=== PATIENT | female | born 1955 | race Caucasian/White ===

== ENCOUNTER 2017-09-24 10:30 | Emergency (ER) | payer BC, OTHER ==
[~2017-09-24] VITALS: Ht 157.5 cm; Wt 77.0 kg
[~2017-09-24 10:30] MED LIST: ACET325 PO; CIPR500T2 PO; HUMSS; HYDR-2768 PO; LIPI20TA PO; LISI2.5T55 PO; LORTA5 PO; METO50TA PO; ST JTAB PO; SUPETAB30 PO; TRAM50 PO; VITA500T49 PO
[2017-09-24] MEDS ORDERED: SODIUM CHLOR 0.9% 1000 ML INJ 1,000 ML IV ONE ×3 (10:52→12:30)
[2017-09-24] MEDS ORDERED: INSULIN HUMAN REGULAR 1,000 UNITS/10 ML VIAL IV PUSH ONE ×3 (11:00→14:00)
[2017-09-24] MEDS ORDERED: SODIUM CHLORIDE 0.9% FLUSH 10 ML FLUSH IVF PRN (11:00)
--- NOTE | 2017-09-24 11:01 | PD ---
HPI Chief Complaint: Diabetic Time Seen by Provider: 10:43 Travel History International Travel<30 days: No Contact w/Intl Traveler<30days: No Traveled to known affect area: No History of Present Illness HPI The patient was seen and examined in the presence of the nurse. This patient complains of elevated blood sugars. She is a insulin-dependent diabetic who has an insulin pump with basal rate of Humalog insulin. She adjusted based on her sugar readings. Sugar yesterday was 150. Today its critically high. She is not having fever or abdominal pain or chest pain or presyncopal symptoms. She did have some nausea. She vomited once. Symptoms severity is moderate. No alleviating factors. No exacerbating factors. Duration one day PFSH Past Medical History Heart Rhythm Problems: No Cancer: No Cardiac Catheterization: No (UNABLE TO COMPLETE) Cardiovascular Problems: Yes High Cholesterol: Yes Congestive Heart Failure: No Diabetes: Yes Patient Takes Glucophage: No (INSULIN PUMP) Diminished Hearing: No Endocrine: Yes Genitourinary: No Hypertension: Yes Immune Disorder: No Musculoskeletal: No Neurologic: No Psychiatric: No Reproductive: No Respiratory: No Tetanus Vaccination: Unknown Influenza Vaccination: Yes Menopausal: Yes : 2 Para: 2 Miscarriage: 0 : 0 Past Surgical History Appendectomy: Yes Cardiac Surgery: Yes (TRIPLE BYPASS OCT 2014) Section: Yes (X2) Coronary Artery Bypass Graft: Yes (X3 VESSELS) Eye Surgery: Yes (CATARACTS X2 REMOVED) Other Surgery: Yes (CARPAL TUNNEL, FINGER RELEASES FOR TRIGGER FINGER) Social History Alcohol Use: No Tobacco Use: No Substance Use: No Allergies-Medications (Allergen,Severity, Reaction): Coded Allergies: No Known Allergies (Unverified Adverse Reaction, Unknown, 09/24/17) Reported Meds & Prescriptions Reported Meds & Active Scripts Active Reported Humalog Inj (Insulin Human Lispro) 1,000 Unit/10 Ml Vial 5-25 Units SQ ACHS Max dose at bedtime:( )units; sugars < 70,(0)units; sugars 150-199,(5)units; sugars 200-249,(10)units; sugars 250-299,(15)units; sugars 300-349,(20)units; sugars more than 349,(25)units. Humalog Inj (Insulin Human Lispro) 1,000 Unit/10 Ml Vial 1.5 Units SQ CONTINUOUS Max dose at bedtime:( )units; sugars < 70,(0)units; sugars 150-199,(2)units; sugars 200-249,(4)units; sugars 250-299,(7)units; sugars 300-349,(10)units; sugars more than 349,(12)units. Humalog Inj (Insulin Human Lispro) 1,000 Unit/10 Ml Vial 1 Units SQ CONTINUOUS Max dose at bedtime:( )units; sugars< 70,(0)units; sugars 150-199,(1)unit; sugars 200-249,(3)units; sugars 250-299,(5)units; sugars 300-349,(7)units; sugars more than 349,(9)units. Crestor (Rosuvastatin Calcium) 40 Mg Tab 40 Mg PO DAILY Review of Systems General / Constitutional: No: Fever Eyes: No: Visual changes HENT: No: Headaches Cardiovascular: No: Chest Pain or Discomfort Respiratory: No: Shortness of Breath Gastrointestinal: No: Abdominal Pain Genitourinary: No: Dysuria Musculoskeletal: No: Pain Skin: No Rash Neurologic: No: Weakness Psychiatric: No: Depression Endocrine: No: Polydipsia Hematologic/Lymphatic: No: Easy Bruising Physical Exam Narrative GENERAL: Well-nourished, well-developed patient in no apparent distress. SKIN: Focused skin assessment reveals no rash and nodules. Skin is Warm and dry. HEAD: Atraumatic. Normocephalic. EYES: Pupils equal and round. No scleral icterus. No injection or drainage. ENT: No nasal bleeding or discharge. Mucous membranes pink and moist. NECK: Trachea midline. No JVD. CARDIOVASCULAR: Regular rate and rhythm. No murmur appreciated. RESPIRATORY: No accessory muscle use. Clear to auscultation. Breath sounds equal bilaterally. GASTROINTESTINAL: Abdomen soft, non-tender, nondistended. Hepatic and splenic margins not palpable. MUSCULOSKELETAL: No obvious deformities. No clubbing. No cyanosis. No edema. NEUROLOGICAL: Awake and alert. No obvious cranial nerve deficits. Motor grossly within normal limits. Normal speech. PSYCHIATRIC: Appropriate mood and affect; insight and judgment normal. Data Data Last Documented VS Vital Signs Date Time Temp Pulse Resp B/P (MAP) Pulse Ox O2 Delivery O2 Flow Rate FiO2 09/24/17 13:43 73 16 138/62 (87) 99 Room Air Orders Orders Electrocardiogram (09/24/17 10:52) Complete Blood Count With Diff (09/24/17 10:52) Comprehensive Metabolic Panel (09/24/17 10:52) Beta Hydroxybutyrate (Acetone) (09/24/17 10:52) Ecg Monitoring (09/24/17 10:52) Iv Access Insert/Monitor (09/24/17 10:52) Oximetry (09/24/17 10:52) Sodium Chlor 0.9% 1000 Ml Inj (Ns 1000 M (09/24/17 10:52) Sodium Chlor 0.9% 1000 Ml Inj (Ns 1000 M (09/24/17 11:22) Sodium Chloride 0.9% Flush (Ns Flush) (09/24/17 11:00) Insulin Human Regular Inj (Novolin R Inj (09/24/17 11:00) Ondansetron Inj (Zofran Inj) (09/24/17 11:15) Sodium Chlor 0.9% 1000 Ml Inj (Ns 1000 M (09/24/17 12:30) Insulin Human Regular Inj (Novolin R Inj (09/24/17 12:30) Insulin Human Regular Inj (Novolin R Inj (09/24/17 14:00) Labs Laboratory Tests Test 09/24/17 11:02 White Blood Count 10.8 TH/MM3 Red Blood Count 4.86 MIL/MM3 Hemoglobin 14.5 GM/DL Hematocrit 44.2 % Mean Corpuscular Volume 91.0 FL Mean Corpuscular Hemoglobin 29.9 PG Mean Corpuscular Hemoglobin Concent 32.8 % Red Cell Distribution Width 14.0 % Platelet Count 252 TH/MM3 Mean Platelet Volume 9.1 FL Neutrophils (%) (Auto) 92.7 % Lymphocytes (%) (Auto) 4.8 % Monocytes (%) (Auto) 2.1 % Eosinophils (%) (Auto) 0.1 % Basophils (%) (Auto) 0.3 % Neutrophils # (Auto) 10.0 TH/MM3 Lymphocytes # (Auto) 0.5 TH/MM3 Monocytes # (Auto) 0.2 TH/MM3 Eosinophils # (Auto) 0.0 TH/MM3 Basophils # (Auto) 0.0 TH/MM3 CBC Comment DIFF FINAL Differential Comment Blood Urea Nitrogen 36 MG/DL Creatinine 1.74 MG/DL Random Glucose 697 MG/DL Total Protein 7.7 GM/DL Albumin 3.9 GM/DL Calcium Level 9.8 MG/DL Alkaline Phosphatase 82 U/L Aspartate Amino Transf (AST/SGOT) 17 U/L Alanine Aminotransferase (ALT/SGPT) 24 U/L Total Bilirubin 1.2 MG/DL Sodium Level 134 MEQ/L Potassium Level 4.5 MEQ/L Chloride Level 98 MEQ/L Carbon Dioxide Level 22.4 MEQ/L Anion Gap 14 MEQ/L Estimat Glomerular Filtration Rate 30 ML/MIN B-Hydroxybutyrate 3.98 MMOL/L MDM Medical Decision Making Medical Screen Exam Complete: Yes Emergency Medical Condition: Yes Medical Record Reviewed: Yes Differential Diagnosis DKA, hyperglycemia, gastroenteritis Narrative Course I have reviewed the patient's electronic medical record. IV placed I gave her 2 L normal saline IV I gave her IV Zofran CBC is normal Metabolic profile shows hyperglycemia of approximately 700 but normal CO2, he is not acidotic and not in DKA LFTs are normal Beta hydroxybutyrate is elevated I gave her 12 units IV regular insulin Extended cardiac monitoring reveals sinus rhythm without ectopy I reviewed her EKG which shows sinus rhythm but no ST elevation I gave her second 12 units IV regular insulin. On recheck sugar is down to 360 from 700 She feels fine I gave her a third liter of saline and 8 additional units of IV regular insulin She is going to dial up her insulin pump to a higher rate and closely track her sugars Recommend follow-up with her physician tomorrow and return if worse Diagnosis Primary Impression: Hyperglycemia due to type 1 diabetes mellitus Additional Impression: Nausea & vomiting Qualified Codes: R11.2 - Nausea with vomiting, unspecified Additional Instructions: The patient was advised to follow up with their physician and return if they worsen. Med/Other Pt SpecificInfo: Other Disposition: 01 DISCHARGE HOME Condition: Stable Jerrell Ray MD Sep 24, 2017 11:01
[2017-09-24] MEDS ORDERED: ONDANSETRON HCL 4 MG/2 ML VIAL IV ONE (11:15)
[2017-09-24] MEDS ORDERED: HUMALOG SQ ×2 (11:24)
[2017-09-24] MEDS ORDERED: ROSU40 PO (11:24)
[2017-09-24 11:25] LABS: BASOPHIL % 0.3 % (0.0-2.0); EOSINOPHIL % 0.1 % (0.0-4.0); HEMATOCRIT 44.2 % (35.0-46.0); HEMO FLAGS DIFF FINAL; LYMPH % 4.8 % (9.0-44.0); LYMPHOCYTE # 0.5 TH/MM3 (1.0-4.8); MEAN CORPUSCULAR HEMOGLOBIN 29.9 PG (27.0-34.0); MEAN CORPUSCULAR HGB CONC 32.8 % (32.0-36.0); MONO % 2.1 % (0.0-8.0); NEUT % 92.7 % (16.0-70.0); PLATELET COUNT 252 TH/MM3 (150-450); RED BLOOD COUNT 4.86 MIL/MM3 (4.00-5.30); WHITE BLOOD COUNT 10.8 TH/MM3 (4.0-11.0)
[2017-09-24 11:57] LABS: ANION GAP 14 MEQ/L (5-15)
[2017-09-24 12:05] LABS: ALKALINE PHOSPHATASE 82 U/L (45-117); ALT (GPT) 24 U/L (10-53); AST (GOT) 17 U/L (15-37); BETA-HYDROXYBUTYRATE 3.98 MMOL/L (0.00-0.39); BICARBONATE 22.4 MEQ/L (21.0-32.0); BLOOD UREA NITROGEN 36 MG/DL (7-18); CHLORIDE 98 MEQ/L (98-107); GLOMERULAR FILTRATION RATE 30 ML/MIN (>89); POTASSIUM 4.5 MEQ/L (3.5-5.1); SODIUM (NA) 134 MEQ/L (136-145); TOTAL BILIRUBIN ADULT 1.2 MG/DL (0.2-1.0)
[2017-09-24 12:14] VITALS: BP 142/60; PULSE 78; RESP 20; O2SAT 99
[2017-09-24 13:43] VITALS: BP 138/62; PULSE 73; RESP 16; O2SAT 99
[2017-09-24] MEDS ORDERED: ZOFR4TAB PO (14:43)
--- NOTE | 2017-09-25 20:26 | EKG ---
Date Performed: 09/24/2017 Time Performed: 10:43:42 PTAGE: 62 years EKG: Sinus rhythm POSSIBLE LEFT ATRIAL ENLARGEMENT PROBABLE INFERIOR MYOCARDIAL INFARCTION There are subtle but diffus e ST depression that are new, consider ischemia ABNORMAL ECG PREVIOUS TRACING : 12/23/2014 16.05 DOCTOR: Jose Angel Casanova Interpretating Date/Time 09/25/2017 20:24:57
== END 2017-09-24 14:55 | disposition home or self-care (01) ==
LOC: NEPE 10:30
DX: E10.65 Type 1 diabetes mellitus with hyperglycemia (principal); R11.2 Nausea with vomiting, unspecified; R94.31 Abnormal electrocardiogram [ECG] [EKG]; I10 Essential (primary) hypertension; E78.00 Pure hypercholesterolemia, unspecified; Z79.4 Long term (current) use of insulin; Z86.79 Personal history of other diseases of the circulatory system
CPT/HCPCS: 80053; 82010; 85025; 93005; 96361; 96374; 96375; 96376; 99284; J1815; J2405; J7030

== ENCOUNTER 2017-09-24 19:21 | Inpatient (IN) | payer BC, OTHER ==
[~2017-09-24] VITALS: Ht 157.5 cm; Wt 82.3 kg
[~2017-09-24 19:21] MED LIST changes: +HUMALOG SQ; +ROSU40 PO; +ZOFR4TAB PO
[2017-09-24 19:23] VITALS: BP 146/81; PULSE 91; RESP 16; TEMP 98.7; O2SAT 99
--- NOTE | 2017-09-24 19:41 | PD ---
HPI Chief Complaint: GI Complaint Time Seen by Provider: 19:41 Travel History International Travel<30 days: No Contact w/Intl Traveler<30days: No Traveled to known affect area: No History of Present Illness HPI 62-year-old female with history of CAD, CABG 3 in 2014, diabetes, presents to emergency department for the second time today for elevated blood glucose. Patient was seen and evaluated this morning, discharged this afternoon and advised to follow-up with the primary care provider. She states that her blood glucose has again become greater than 400. She is nauseous and vomiting. She has had substernal pain and she is uncertain if this is secondary to vomiting or her heart. Patient states the last time her blood glucose was this "out-of- control" was prior to her triple bypass surgery. This caused her to be concerned so she came back to the emergency department. She denies any shortness of breath. No recent illnesses, fever, or chills. She has no other symptoms reported. PFSH Past Medical History Heart Rhythm Problems: No Cancer: No Cardiovascular Problems: Yes High Cholesterol: Yes Congestive Heart Failure: No Diabetes: Yes Patient Takes Glucophage: No Diminished Hearing: No Endocrine: Yes Genitourinary: No Hypertension: Yes Immune Disorder: No Musculoskeletal: No Neurologic: No Psychiatric: No Reproductive: No Respiratory: No ?: Not Menopausal: Yes : 2 Para: 2 Miscarriage: 0 : 0 Past Surgical History Appendectomy: Yes Cardiac Surgery: Yes (TRIPLE BYPASS OCT 2014) Section: Yes (X2) Coronary Artery Bypass Graft: Yes (X3 VESSELS) Eye Surgery: Yes (CATARACTS X2 REMOVED) Other Surgery: Yes (CARPAL TUNNEL, FINGER RELEASES FOR TRIGGER FINGER) Social History Alcohol Use: No Tobacco Use: No Substance Use: No Allergies-Medications (Allergen,Severity, Reaction): Coded Allergies: No Known Allergies (Unverified Adverse Reaction, Unknown, 09/24/17) Reported Meds & Prescriptions Reported Meds & Active Scripts Active Zofran (Ondansetron HCl) 4 Mg Tab 4 Mg PO Q6HR PRN Reported Humalog Inj (Insulin Human Lispro) 1,000 Unit/10 Ml Vial 5-25 Units SQ ACHS Max dose at bedtime:( )units; sugars < 70,(0)units; sugars 150-199,(5)units; sugars 200-249,(10)units; sugars 250-299,(15)units; sugars 300-349,(20)units; sugars more than 349,(25)units. Humalog Inj (Insulin Human Lispro) 1,000 Unit/10 Ml Vial 1.5 Units SQ CONTINUOUS Max dose at bedtime:( )units; sugars < 70,(0)units; sugars 150-199,(2)units; sugars 200-249,(4)units; sugars 250-299,(7)units; sugars 300-349,(10)units; sugars more than 349,(12)units. Humalog Inj (Insulin Human Lispro) 1,000 Unit/10 Ml Vial 1 Units SQ CONTINUOUS Max dose at bedtime:( )units; sugars< 70,(0)units; sugars 150-199,(1)unit; sugars 200-249,(3)units; sugars 250-299,(5)units; sugars 300-349,(7)units; sugars more than 349,(9)units. Crestor (Rosuvastatin Calcium) 40 Mg Tab 40 Mg PO DAILY Review of Systems Except as stated in HPI: all other systems reviewed are Neg Physical Exam Narrative GENERAL: Well-nourished female patient, lying in bed in no acute distress. SKIN: Focused skin assessment warm/dry. HEAD: Atraumatic. Normocephalic. EYES: Pupils equal and round. No scleral icterus. No injection or drainage. ENT: No nasal bleeding or discharge. Mucous membranes pink and moist. NECK: Trachea midline. No JVD. CARDIOVASCULAR: Regular rate and rhythm. No murmur appreciated. RESPIRATORY: No accessory muscle use. Clear to auscultation. Breath sounds equal bilaterally. GASTROINTESTINAL: Abdomen soft, non-tender, nondistended. Hepatic and splenic margins not palpable. MUSCULOSKELETAL: No obvious deformities. No clubbing. No cyanosis. No edema. NEUROLOGICAL: Awake and alert. No obvious cranial nerve deficits. Motor grossly within normal limits. Normal speech. PSYCHIATRIC: Appropriate mood and affect; insight and judgment normal. Data Data Last Documented VS Vital Signs Date Time Temp Pulse Resp B/P (MAP) Pulse Ox O2 Delivery O2 Flow Rate FiO2 09/24/17 20:04 99 Room Air 09/24/17 19:23 98.7 91 16 Orders Orders Basic Metabolic Panel (Bmp) (09/24/17 19:45) Complete Blood Count With Diff (09/24/17 19:45) Lipase (09/24/17 19:45) Prothrombin Time / Inr (Pt) (09/24/17 19:45) Act Partial Throm Time (Ptt) (09/24/17 19:45) Urinalysis - C+S If Indicated (09/24/17 19:45) Iv Access Insert/Monitor (09/24/17 19:45) Ecg Monitoring (09/24/17:45) Oximetry (09/24/17 19:45) Ondansetron Inj (Zofran Inj) (09/24/17 19:45) Sodium Chlor 0.9% 1000 Ml Inj (Ns 1000 M (09/24/17 19:45) Sodium Chloride 0.9% Flush (Ns Flush) (09/24/17 19:45) Electrocardiogram (09/24/17 19:45) Ckmb (Isoenzyme) Profile (09/24/17 19:45) Troponin I (09/24/17:45) Chest, Single Ap (09/24/17 19:45) Insulin Human Regular Inj (Novolin R Inj (09/24/17 20:00) Aspirin Chew (Aspirin Chew) (09/24/17 20:00) Nitroglycerin Sl (Nitrostat Sl) (09/24/17 20:00) CKMB (09/24/17 19:50) CKMB% (09/24/17 19:50) Morphine Inj (Morphine Inj) (09/24/17 20:45) Heparin Inj (Heparin Inj) (09/24/17 21:00) Heparin Inj (Heparin Inj) (09/25/17 03:00) Heparin Inj (Heparin Inj) (09/25/17 03:00) Heparin-D5w 25,000 U/250 Ml (Heparin-D5w (09/24/17 21:00) Cbc No Diff, Includes Plts (09/27/17 06:00) Act Partial Throm Time (Ptt) (09/25/17 03:46) Occult Blood (Hemoccult) Stool (09/24/17 20:46) Admit Order (Ed Use Only) (09/24/17 21:18) Labs Laboratory Tests Test 09/24/17 19:50 White Blood Count 14.0 TH/MM3 Red Blood Count 4.37 MIL/MM3 Hemoglobin 12.9 GM/DL Hematocrit 39.5 % Mean Corpuscular Volume 90.4 FL Mean Corpuscular Hemoglobin 29.4 PG Mean Corpuscular Hemoglobin Concent 32.5 % Red Cell Distribution Width 14.1 % Platelet Count 258 TH/MM3 Mean Platelet Volume 8.9 FL Neutrophils (%) (Auto) 92.8 % Lymphocytes (%) (Auto) 2.3 % Monocytes (%) (Auto) 4.7 % Eosinophils (%) (Auto) 0.0 % Basophils (%) (Auto) 0.2 % Neutrophils # (Auto) 13.0 TH/MM3 Lymphocytes # (Auto) 0.3 TH/MM3 Monocytes # (Auto) 0.7 TH/MM3 Eosinophils # (Auto) 0.0 TH/MM3 Basophils # (Auto) 0.0 TH/MM3 CBC Comment DIFF FINAL Differential Comment Prothrombin Time 10.7 SEC Prothromb Time International Ratio 1.1 RATIO Activated Partial Thromboplast Time 21.2 SEC Blood Urea Nitrogen 31 MG/DL Creatinine 1.74 MG/DL Random Glucose 446 MG/DL Calcium Level 8.8 MG/DL Sodium Level 140 MEQ/L Potassium Level 5.2 MEQ/L Chloride Level 107 MEQ/L Carbon Dioxide Level 19.7 MEQ/L Anion Gap 13 MEQ/L Estimat Glomerular Filtration Rate 30 ML/MIN Total Creatine Kinase 204 U/L Creatine Kinase MB 7.1 NG/ML Creatine Kinase MB % 3.5 % Troponin I 0.75 NG/ML Lipase 117 U/L MDM Medical Decision Making Medical Screen Exam Complete: Yes Emergency Medical Condition: Yes Medical Record Reviewed: Yes Differential Diagnosis Hyperglycemia versus DKA versus gastritis versus ACS Narrative Course 62-year-old female presents to emergency department for evaluation of elevated blood glucose. Patient's noted to be hyperglycemic here. She is also nauseous and vomiting with a chest pain. EKG shows lateral wall ST depression, this is new from previous EKG. She is given aspirin and lingual nitroglycerin. Upon reassessment she states it mildly helps her pain however pain still persists. She is given morphine. Laboratory Tests Test 09/24/17 19:50 White Blood Count 14.0 TH/MM3 Red Blood Count 4.37 MIL/MM3 Hemoglobin 12.9 GM/DL Hematocrit 39.5 % Mean Corpuscular Volume 90.4 FL Mean Corpuscular Hemoglobin 29.4 PG Mean Corpuscular Hemoglobin Concent 32.5 % Red Cell Distribution Width 14.1 % Platelet Count 258 TH/MM3 Mean Platelet Volume 8.9 FL Neutrophils (%) (Auto) 92.8 % Lymphocytes (%) (Auto) 2.3 % Monocytes (%) (Auto) 4.7 % Eosinophils (%) (Auto) 0.0 % Basophils (%) (Auto) 0.2 % Neutrophils # (Auto) 13.0 TH/MM3 Lymphocytes # (Auto) 0.3 TH/MM3 Monocytes # (Auto) 0.7 TH/MM3 Eosinophils # (Auto) 0.0 TH/MM3 Basophils # (Auto) 0.0 TH/MM3 CBC Comment DIFF FINAL Differential Comment Prothrombin Time 10.7 SEC Prothromb Time International Ratio 1.1 RATIO Activated Partial Thromboplast Time 21.2 SEC Blood Urea Nitrogen 31 MG/DL Creatinine 1.74 MG/DL Random Glucose 446 MG/DL Calcium Level 8.8 MG/DL Sodium Level 140 MEQ/L Potassium Level 5.2 MEQ/L Chloride Level 107 MEQ/L Carbon Dioxide Level 19.7 MEQ/L Anion Gap 13 MEQ/L Estimat Glomerular Filtration Rate 30 ML/MIN Total Creatine Kinase 204 U/L Creatine Kinase MB 7.1 NG/ML Creatine Kinase MB % 3.5 % Troponin I 0.75 NG/ML Lipase 117 U/L Patient has leukocytosis of 14. Hyperkalemia 5.2. Blood glucose is 446. Patient was given IV normal saline fluid and 12 units regular insulin subcutaneously. Troponin is elevated at 0.75. I have discussed the patient my attending. Patient will be started on a heparin drip. I have discussed the patient was Dr. [place], hospitalist [facility]. Patient will be admitted to the CICU. Mera discussed with the patient and her who is at bedside. They are in agreement with the splenic care. Dr. Lovett is the patient's insurance follow up rep. Diagnosis Primary Impression: NSTEMI (non-ST elevated myocardial infarction) Additional Impression: Hyperglycemia Admitting Information Admitting Physician Requests: Admit Condition: Stable Lynda Baez Sep 24, 2017 19:41
[2017-09-24] MEDS ORDERED: ONDANSETRON HCL 4 MG/2 ML VIAL IVP ONE (19:45)
[2017-09-24] MEDS ORDERED: SODIUM CHLOR 0.9% 1000 ML INJ 1,000 ML IV SCH (19:45)
[2017-09-24] MEDS ORDERED: SODIUM CHLORIDE 0.9% FLUSH 10 ML FLUSH IV FLUSH PRN ×2 (19:45→21:30)
--- NOTE | 2017-09-24 19:59 | PD ---
Physical Exam Date Seen by Provider: Sep 24, 2017 Time Seen by Provider: 19:50 Narrative Patient presents with hyperglycemia, nausea and vomiting and just feeling poorly. She was just discharged from the emergency department a few hours ago for similar symptoms. Data Data Last Documented VS Vital Signs Date Time Temp Pulse Resp B/P (MAP) Pulse Ox O2 Delivery O2 Flow Rate FiO2 09/24/17 20:04 99 Room Air 09/24/17 19:23 98.7 91 16 Orders Orders Basic Metabolic Panel (Bmp) (09/24/17 19:45) Complete Blood Count With Diff (09/24/17:45) Lipase (09/24/17:45) Prothrombin Time / Inr (Pt) (09/24/17:45) Act Partial Throm Time (Ptt) (09/24/17:45) Urinalysis - C+S If Indicated (09/24/17 19:45) Iv Access Insert/Monitor (09/24/17 19:45) Ecg Monitoring (09/24/17:45) Oximetry (09/24/17:45) Ondansetron Inj (Zofran Inj) (09/24/17 19:45) Sodium Chlor 0.9% 1000 Ml Inj (Ns 1000 M (09/24/17 19:45) Sodium Chloride 0.9% Flush (Ns Flush) (09/24/17 19:45) Electrocardiogram (09/24/17 19:45) Ckmb (Isoenzyme) Profile (09/24/17 19:45) Troponin I (09/24/17 19:45) Chest, Single Ap (09/24/17 19:45) Insulin Human Regular Inj (Novolin R Inj (09/24/17 20:00) Aspirin Chew (Aspirin Chew) (09/24/17 20:00) Nitroglycerin Sl (Nitrostat Sl) (09/24/17 20:00) CKMB (09/24/17 19:50) CKMB% (09/24/17 19:50) Morphine Inj (Morphine Inj) (09/24/17 20:45) Heparin Inj (Heparin Inj) (09/24/17 21:00) Heparin Inj (Heparin Inj) (09/25/17 03:00) Heparin Inj (Heparin Inj) (09/25/17 03:00) Heparin-D5w 25,000 U/250 Ml (Heparin-D5w (09/24/17 21:00) Cbc No Diff, Includes Plts (09/27/17 06:00) Act Partial Throm Time (Ptt) (09/25/17 03:46) Occult Blood (Hemoccult) Stool (09/24/17 20:46) Admit Order (Ed Use Only) (09/24/17 21:18) Admit To Inpatient (09/24/17 ) Vital Signs (Adult) Q4H (09/24/17 21:18) Activity Bed Rest With Brp (09/24/17 ) Statistical Methods Teacher / Telemetry [id number].[id number] (09/24/17 21:18) Diet Npo (09/25/17 Breakfast) Sodium Chlor 0.9% 1000 Ml Inj (Ns 1000 M (09/24/17 21:18) Sodium Chloride 0.9% Flush (Ns Flush) (09/25/17 09:00) Sodium Chloride 0.9% Flush (Ns Flush) (09/24/17 21:30) Acetaminophen (Tylenol) (09/24/17 21:30) Creatine Kinase (Cpk) (09/24/17 23:59) Creatine Kinase (Cpk) (09/25/17 05:59) Troponin I (09/24/17 23:59) Troponin I (09/25/17 05:59) Basic Metabolic Panel (Bmp) (09/25/17 06:00) Complete Blood Count With Diff (09/25/17 06:00) Electrocardiogram (09/24/17 23:59) Electrocardiogram (09/25/17 05:59) Resp Oxygen Gabriele C Titrat 1-4 L (09/24/17 ) Inpatient Certification (09/24/17 ) Consult Cardiology (09/24/17 ) Bedside Glucose [id number] (09/24/17 21:18) Blood Glucose Goal (Criteria) (09/24/17 21:18) Hypoglycemia 70 Mg/Dl Or < (09/24/17 21:18) Notify Dr: Other (09/24/17 21:18) Dextrose 50% In Tiara (Vial) Inj (D50w (Vi (09/24/17 21:30) Glucagon Inj (Glucagon Inj) (09/24/17 21:30) Insulin Aspart Supplemtl Scale (Novolog (09/25/17 08:00) (Nf) Rosuvastatin (Crestor) (09/25/17 09:00) Labs Laboratory Tests Test 09/24/17 19:50 White Blood Count 14.0 TH/MM3 Red Blood Count 4.37 MIL/MM3 Hemoglobin 12.9 GM/DL Hematocrit 39.5 % Mean Corpuscular Volume 90.4 FL Mean Corpuscular Hemoglobin 29.4 PG Mean Corpuscular Hemoglobin Concent 32.5 % Red Cell Distribution Width 14.1 % Platelet Count 258 TH/MM3 Mean Platelet Volume 8.9 FL Neutrophils (%) (Auto) 92.8 % Lymphocytes (%) (Auto) 2.3 % Monocytes (%) (Auto) 4.7 % Eosinophils (%) (Auto) 0.0 % Basophils (%) (Auto) 0.2 % Neutrophils # (Auto) 13.0 TH/MM3 Lymphocytes # (Auto) 0.3 TH/MM3 Monocytes # (Auto) 0.7 TH/MM3 Eosinophils # (Auto) 0.0 TH/MM3 Basophils # (Auto) 0.0 TH/MM3 CBC Comment DIFF FINAL Differential Comment Prothrombin Time 10.7 SEC Prothromb Time International Ratio 1.1 RATIO Activated Partial Thromboplast Time 21.2 SEC Blood Urea Nitrogen 31 MG/DL Creatinine 1.74 MG/DL Random Glucose 446 MG/DL Calcium Level 8.8 MG/DL Sodium Level 140 MEQ/L Potassium Level 5.2 MEQ/L Chloride Level 107 MEQ/L Carbon Dioxide Level 19.7 MEQ/L Anion Gap 13 MEQ/L Estimat Glomerular Filtration Rate 30 ML/MIN Total Creatine Kinase 204 U/L Creatine Kinase MB 7.1 NG/ML Creatine Kinase MB % 3.5 % Troponin I 0.75 NG/ML Lipase 117 U/L [facility] Supervised Visit with LUKE: Yes Interpretation(s) EKG shows a normal sinus rhythm. She has some subtle STT wave changes in V3 and V4 which are changed from previous. Differential Diagnosis Differential diagnosis of hyperglycemia includes but is not limited to dietary indiscretion, medication noncompliance, infection, [place] Narrative Course I, Dr. Pagan, have reviewed the advance practice practitioner's documentation and am in agreement, met with the patient face to face, made the diagnosis, and the medical decision making was done by me. *My assessment and Findings: This is a diabetic who presents with nausea, vomiting and hyperglycemia. She is also having some chest discomfort. She is being evaluated for ACS. If she has not already had an aspirin today, we will give her one. She will be treated with nitroglycerin. Ultimate plan will be to admit her. CBC & BMP Diagram 09/24/17 19:50 Calcium Level 8.8 # trop 0.75. This patient does have renal insufficiency. The renal insufficiency could explain the elevated troponin. Nonetheless, the patient has been heparinized. She has been given nitroglycerin. Please see Lynda Baez NP's note for results of laboratory and radiographic evaluation, ED course, final diagnosis and disposition Critical Care Narrative Aggregate critical care time was 30 minutes. Time to perform other separately billable procedures was not included in the critical care time. My time did not include minutes spent treating any other patients simultaneously or on activities that did not directly contribute to the patient's treatment. The services I provided to this patient were to treat and/or prevent clinically significant deterioration due to ACS, NSTEMI I provided critical care services requiring my management, as noted below: Chart data review, documentation time, medication orders and management, vital sign assessments/reviewing monitor data, ordering and reviewing lab tests, ordering and interpreting/reviewing x-rays and diagnostic studies, care of the patient and discussion of the patient with the admitting physicians Isadora Pagan MD Sep 24, 2017 19:59
[2017-09-24] MEDS ORDERED: INSULIN HUMAN REGULAR 1,000 UNITS/10 ML VIAL SQ ONE (20:00)
[2017-09-24] MEDS ORDERED: ASPIRIN 81 MG CHEW TAB PO ONE (20:00)
[2017-09-24 20:02] LABS: BASOPHIL % 0.2 % (0.0-2.0); HEMATOCRIT 39.5 % (35.0-46.0); HEMO FLAGS DIFF FINAL; LYMPH % 2.3 % (9.0-44.0); LYMPHOCYTE # 0.3 TH/MM3 (1.0-4.8); MEAN CELL VOLUME 90.4 FL (80.0-100.0); MEAN CORPUSCULAR HEMOGLOBIN 29.4 PG (27.0-34.0); MEAN CORPUSCULAR HGB CONC 32.5 % (32.0-36.0); MONO % 4.7 % (0.0-8.0); NEUT % 92.8 % (16.0-70.0); PLATELET COUNT 258 TH/MM3 (150-450); RED BLOOD COUNT 4.37 MIL/MM3 (4.00-5.30); RED CELL DISTRIBUTION WIDTH 14.1 % (11.6-17.2)
[2017-09-24 20:04] VITALS: O2SAT 99
[2017-09-24] MEDS: NITROGLYCERIN 0.4 MG SL 25 TABS/BTL SL SCH ×3 (20:05→20:36)
[2017-09-24 20:21] LABS: BICARBONATE 19.7 MEQ/L (21.0-32.0)
[2017-09-24 20:25] LABS: POTASSIUM 5.2 MEQ/L (3.5-5.1)
[2017-09-24 20:26] LABS: APTT (PATIENT) 21.2 SEC (24.3-30.1); INTERNATIONAL NORMALIZED RATIO 1.1 RATIO; PROTHROMBIN TIME - PATIENT 10.7 SEC (9.8-11.6)
--- NOTE | 2017-09-24 20:31 | RADRPT ---
EXAM DATE/TIME: 09/24/2017 20:19 [place] COMPARISON: CHEST SINGLE AP, December 23, 2014, 9:58. INDICATIONS : Chest pain. MEDICAL HISTORY : Cardiovascular disease. SURGICAL HISTORY : CABG. ENCOUNTER: Initial ACUITY: 1 day PAIN SCORE: 7/10 LOCATION: Bilateral chest FINDINGS: The patient is status post sternotomy. The heart size is normal. There is mild increased density at t he left lateral base. The right lung is clear. CONCLUSION: Mild atelectasis or consolidation at the left lateral base. Beto Chase MD on September 24, 2017 at 20:28 Board Certified Radiologist. This report was verified electronically.
[2017-09-24] MEDS ORDERED: MORPHINE SULFATE 2 MG/ML INJ IV PUSH ONE (20:45)
[2017-09-24 20:56] LABS: CKMB 7.1 NG/ML (0.5-3.6)
[2017-09-24] MEDS ORDERED: HEPARIN-D5W 25,000 U/250 ML 250 ML IV PRN (21:00)
[2017-09-24] MEDS ORDERED: HEPARIN SODIUM - IV 10,000 UNITS/10 ML VIAL IV ONE (21:00)
[2017-09-24] MEDS ORDERED: ACETAMINOPHEN 500 MG CPLT PO PRN (21:30)
[2017-09-24] MEDS ORDERED: GLUCAGON 1 MG/ML VIAL OTHER PRN (21:30)
[2017-09-24] MEDS ORDERED: DEXTROSE 50% IN WATER 50 ML VIAL(D50) IV PUSH PRN (21:30)
[2017-09-24 22:00] VITALS: O2SAT 95
[2017-09-24 23:09] LABS: BACTERIA, URINE RARE /hpf; BLOOD, URINE NEG (NEG); COMMENT (UR) CULT NOT INDICATED; CULTURE IF INDICATED CULT NOT INDICATED; GLUCOSE,URINE 1000 mg/dL (NEG); KETONE, URINE 40 mg/dL (NEG); MUCUS URINE FEW /lpf (OCC); NITRITE,URINE NEG (NEG); SQUAMOUS EPITHELIAL CELL URINE <1 /hpf (0-5); URINE COLOR LIGHT-YELLOW (YELLW/STRAW)
[2017-09-24] MEDS: SODIUM CHLOR 0.9% 1000 ML INJ 1,000 ML IV SCH (23:16)
--- NOTE | 2017-09-24 23:28 | HHI.HP ---
[facility] Service [facility] Primary Care Physician Madhuri Hannon MD Admission Diagnosis HYPERGLYCEMIA; NSTEMI Diagnoses: Travel History International Travel<30 Days: No Contact w/Intl Traveler <30 Da: No Traveled to Known Affected Are: No History of Present Illness 62-year-old female with a past medical history significant for CAD status post CABG, hyperlipidemia and insulin-dependent diabetes mellitus presents to the emergency department for uncontrolled hyperglycemia, nausea/vomiting and chest pain. The patient was seen in the ED earlier today where she was treated for hyperglycemia and discharged home. She continued to have high blood sugars, nausea with emesis and developed left sided chest pain/pressure and returned for further evaluation. She states the symptoms are identical to when she had her previous LA 2 years ago. Troponin found to be 0.75. EKG significant for new ST depressions in the lateral leads. Review of Systems Denies fever or chills Denies blurry vision, otorrhea, rhinorrhea Denies sore throat and cough Positive chest pain, No palpitations, shortness of breath No abdominal pain Denies constipation/diarrhea. Positive nausea/vomiting Denies muscle pain/weakness No rashes Past Family Social History Past Medical History Hypertension Hyperlipidemia CAD Diabetes mellitus with insulin pump in place Diabetic retinopathy Past Surgical History CABG 3 in October 2014 2 Appendectomy Bilateral carpal tunnel release Multiple trigger finger release surgeries Reported Medications Reported Meds & Active Scripts Active Zofran (Ondansetron HCl) 4 Mg Tab 4 Mg PO Q6HR PRN Reported Humalog Inj (Insulin Human Lispro) 1,000 Unit/10 Ml Vial 5-25 Units SQ ACHS Max dose at bedtime:( )units; sugars < 70,(0)units; sugars 150-199,(5)units; sugars 200-249,(10)units; sugars 250-299,(15)units; sugars 300-349,(20)units; sugars more than 349,(25)units. Humalog Inj (Insulin Human Lispro) 1,000 Unit/10 Ml Vial 1.5 Units SQ CONTINUOUS Max dose at bedtime:( )units; sugars < 70,(0)units; sugars 150-199,(2)units; sugars 200-249,(4)units; sugars 250-299,(7)units; sugars 300-349,(10)units; sugars more than 349,(12)units. Humalog Inj (Insulin Human Lispro) 1,000 Unit/10 Ml Vial 1 Units SQ CONTINUOUS Max dose at bedtime:( )units; sugars< 70,(0)units; sugars 150-199,(1)unit; sugars 200-249,(3)units; sugars 250-299,(5)units; sugars 300-349,(7)units; sugars more than 349,(9)units. Crestor (Rosuvastatin Calcium) 40 Mg Tab 40 Mg PO DAILY Allergies: Coded Allergies: No Known Allergies (Unverified Adverse Reaction, Unknown, 09/24/17) Family History Both parents with type 2 diabetes mellitus. Social History Denies tobacco. Occasional alcohol. Denies illicit drugs. Physical Exam Vital Signs Vital Signs Date Time Temp Pulse Resp B/P (MAP) Pulse Ox O2 Delivery O2 Flow Rate FiO2 09/24/17 20:04 99 Room Air 09/24/17 19:23 98.7 91 16 146/81 (102) 99 Room Air Physical Exam GENERAL: female lying in bed SKIN: No rashes, ecchymoses or lesions. Cool and dry. HEAD: Atraumatic. Normocephalic. No temporal or scalp tenderness. EYES: Pupils equal round and reactive. Extraocular motions intact. No scleral icterus. No injection or drainage. ENT: Nose without bleeding, purulent drainage or septal hematoma. Throat without erythema, tonsillar hypertrophy or exudate. Uvula midline. Airway patent. NECK: Trachea midline. No JVD or lymphadenopathy. Supple, nontender, no meningeal signs. CARDIOVASCULAR: Regular rate and rhythm without murmurs, gallops, or rubs. RESPIRATORY: Clear to auscultation. Breath sounds equal bilaterally. No wheezes , rales, or rhonchi. GASTROINTESTINAL: Abdomen soft, non-tender, nondistended. No hepato-splenomegaly , or palpable masses. No guarding. MUSCULOSKELETAL: Extremities without clubbing, cyanosis, or edema. No joint tenderness, effusion, or edema noted. No calf tenderness. NEUROLOGICAL: Awake and alert. Cranial nerves II through XII intact. Motor and sensory grossly within normal limits. Normal speech. Laboratory Laboratory Tests Test 09/24/17 19:50 09/24/17 22:15 09/24/17 22:30 White Blood Count 14.0 Red Blood Count 4.37 Hemoglobin 12.9 Hematocrit 39.5 Mean Corpuscular Volume 90.4 Mean Corpuscular Hemoglobin 29.4 Mean Corpuscular Hemoglobin Concent 32.5 Red Cell Distribution Width 14.1 Platelet Count 258 Mean Platelet Volume 8.9 Neutrophils (%) (Auto) 92.8 Lymphocytes (%) (Auto) 2.3 Monocytes (%) (Auto) 4.7 Eosinophils (%) (Auto) 0.0 Basophils (%) (Auto) 0.2 Neutrophils # (Auto) 13.0 Lymphocytes # (Auto) 0.3 Monocytes # (Auto) 0.7 Eosinophils # (Auto) 0.0 Basophils # (Auto) 0.0 CBC Comment DIFF FINAL Differential Comment Prothrombin Time 10.7 Prothromb Time International Ratio 1.1 Activated Partial Thromboplast Time 21.2 Blood Urea Nitrogen 31 Creatinine 1.74 Random Glucose 446 Calcium Level 8.8 Sodium Level 140 Potassium Level 5.2 Chloride Level 107 Carbon Dioxide Level 19.7 Anion Gap 13 Estimat Glomerular Filtration Rate 30 Total Creatine Kinase 204 Creatine Kinase MB 7.1 Creatine Kinase MB % 3.5 Troponin I 0.75 Lipase 117 Urine Color LIGHT-YELLOW Urine Turbidity CLEAR Urine pH 5.0 Urine Specific [place] 1.016 Urine Protein NEG Urine Glucose (UA) 1000 Urine Ketones 40 Urine Occult Blood NEG Urine Nitrite NEG Urine Bilirubin NEG Urine Urobilinogen LESS THAN 2.0 Urine Leukocyte Esterase NEG Urine RBC LESS THAN 1 Urine WBC 2 Urine Squamous Epithelial Cells <1 Urine Bacteria RARE Urine Mucus FEW Microscopic Urinalysis Comment CULT NOT INDICATED Result Diagram: 09/24/17194909/24/171949 Caprini VTE Risk Assessment Caprini VTE Risk Assessment: Mod/High Risk (score >= 2) Caprini Risk Assessment Model Point Value = 1 Point Value = 2 Point Value = 3 Point Value = 5 Age 41-60 Minor surgery BMI > 25 kg/m2 Swollen legs Varicose veins or History of unexplained or recurrent spontaneous Oral contraceptives or hormone replacement Sepsis (< 1 month) Serious lung disease, including pneumonia (< 1 month) Abnormal pulmonary function Acute myocardial infarction Congestive heart failure (< 1 month) History of inflammatory bowel disease Medical patient at bed rest Age 61-74 Arthroscopic surgery Major open surgery (> 45 min) Laparoscopic surgery (> 45 min) Malignancy Confined to bed (> 72 hours) Immobilizing plaster cast Central venous access Age >= 75 History of VTE Family history of VTE Factor V Leiden Prothrombin [id number] Lupus anticoagulant Anticardiolipin antibodies Elevated serum homocysteine Heparin-induced thrombocytopenia Other congenital or acquired thrombophilia Stroke (< 1 month) Elective arthroplasty Hip, pelvis, or leg fracture Acute spinal cord injury (< 1 month) Prophylaxis Regimen Total Risk Factor Score Risk Level Prophylaxis Regimen 0-1 Low Early ambulation 2 Moderate Order ONE of the following: *Sequential Compression Device (SCD) *Heparin 5000 units SQ BID 3-4 Higher Order ONE of the following medications: *Heparin 5000 units SQ TID *Enoxaparin/Lovenox 40 mg SQ daily (WT < 150 kg, CrCl > 30 mL/min) *Enoxaparin/Lovenox 30 mg SQ daily (WT < 150 kg, CrCl > 10-29 mL/min) *Enoxaparin/Lovenox 30 mg SQ BID (WT < 150 kg, CrCl > 30 mL/min) AND/OR *Sequential Compression Device (SCD) 5 or more Highest Order ONE of the following medications: *Heparin 5000 units SQ TID (Preferred with Epidurals) *Enoxaparin/Lovenox 40 mg SQ daily (WT < 150 kg, CrCl > 30 mL/min) *Enoxaparin/Lovenox 30 mg SQ daily (WT < 150 kg, CrCl > 10-29 mL/min) *Enoxaparin/Lovenox 30 mg SQ BID (WT < 150 kg, CrCl > 30 mL/min) AND *Sequential Compression Device (SCD) Assessment and Plan Assessment and Plan Assessment/plan: 1. NSTEMI Troponin 0.75 EKG significant for new ST depressions in the lateral leads, reviewed by me Patient's government affairs manager, Dr. Loevtt consulted, appreciate recommendations Heparin drip Morphine for pain Serial troponins/EKGs 2. Type 2 diabetes mellitus with uncontrolled hyperglycemia Patient currently has an insulin pump Given IV insulin SSI Monitor blood glucose 3. Hyperlipidemia Continue home crestor FEN NPO NS at 100 cc/hr Electrolytes: monitor and replete prn Heparin ggt Case discussed with ER physician at length Physician Certification 2 Midnight Certification Type: Admission for Inpatient Services Order for Inpatient Services The services are ordered in accordance with Medicare regulations or non- Medicare payer requirements, as applicable. In the case of services not specified as inpatient-only, they are appropriately provided as inpatient services in accordance with the 2-midnight benchmark. Estimated LOS (days): 2 2 days is the estimated time the patient will need to remain in the hospital, assuming treatment plan goals are met and no additional complications. Post-Hospital Plan: Not yet determined Kaur Montana MD Sep 24, 2017 23:28
[2017-09-24 23:30] VITALS: BP 107/56; PULSE 82; RESP 16; O2SAT 99
[2017-09-24] MEDS ORDERED: MORPHINE SULFATE 4 MG/ML INJ IV PUSH PRN (23:30)
[2017-09-24 23:42] LABS: CKMB 11.5 NG/ML (0.5-3.6)
[2017-09-25] VITALS (25 sets, daily range): BP systolic 104–138; BP diastolic 53–63; PULSE 62–84; RESP 16–20; TEMP 98.5–98.9; O2SAT 95–99
[2017-09-25] MEDS ORDERED: HEPARIN SODIUM - IV 10,000 UNITS/10 ML VIAL IV PRN ×4 (03:00→19:45)
[2017-09-25 07:36] LABS: AUTOMATED NEUTROPHIL # 11.6 TH/MM3 (1.8-7.7); BASOPHIL % 0.3 % (0.0-2.0); HEMATOCRIT 34.8 % (35.0-46.0); HEMO FLAGS DIFF FINAL; LYMPH % 6.2 % (9.0-44.0); LYMPHOCYTE # 0.8 TH/MM3 (1.0-4.8); MEAN CELL VOLUME 88.8 FL (80.0-100.0); MEAN CORPUSCULAR HEMOGLOBIN 29.1 PG (27.0-34.0); MEAN CORPUSCULAR HGB CONC 32.8 % (32.0-36.0); MONO % 7.1 % (0.0-8.0); NEUT % 86.4 % (16.0-70.0); PLATELET COUNT 254 TH/MM3 (150-450); RED BLOOD COUNT 3.92 MIL/MM3 (4.00-5.30); RED CELL DISTRIBUTION WIDTH 13.8 % (11.6-17.2); WHITE BLOOD COUNT 13.5 TH/MM3 (4.0-11.0)
[2017-09-25 07:44] LABS: APTT (PATIENT) 66.4 SEC (24.3-30.1)
[2017-09-25] MEDS: INSULIN ASPART SUPPLEMENTAL SCALE SQ SCH ×4 (08:00→20:56)
[2017-09-25 08:09] LABS: BICARBONATE 23.5 MEQ/L (21.0-32.0); POTASSIUM 4.2 MEQ/L (3.5-5.1)
[2017-09-25 08:39] LABS: CKMB 33.2 NG/ML (0.5-3.6)
[2017-09-25] MEDS: SODIUM CHLORIDE 0.9% FLUSH 10 ML FLUSH IV FLUSH SCH ×2 (09:00→20:51)
[2017-09-25] MEDS: ATORVASTATIN 80 MG TAB PO SCH (10:43)
[2017-09-25] MEDS: SODIUM CHLOR 0.9% 1000 ML INJ 1,000 ML IV SCH ×2 (10:44→20:52)
--- NOTE | 2017-09-25 11:56 | HHI.PR ---
Subjective Remarks No chest pain or nausea today. Blood sugars are under better control. Troponins have trended upwards and latest troponin is 15.40 (this is her third troponin) Objective Vital Signs Date Time Temp Pulse Resp B/P (MAP) Pulse Ox O2 Delivery O2 Flow Rate FiO2 09/25/17 06:00 78 09/25/17 05:00 74 09/25/17 04:00 76 09/25/17 03:20 84 18 107/57 (74) 95 09/25/17 03:00 78 09/25/17 02:00 76 09/25/17 01:00 78 09/25/17 00:15 98.9 77 16 105/58 (74) 99 09/25/17 00:00 81 09/24/17 23:56 09/24/17 23:30 82 16 107/56 (73) 99 Room Air 09/24/17 22:00 95 09/24/17 20:04 99 Room Air 09/24/17 19:23 98.7 91 16 146/81 (102) 99 Room Air I/O 09/24/17 09/24/17 09/24/17 09/25/17 09/25/17 09/25/17 06:59 14:59 22:59 06:59 14:59 22:59 Intake Total 1050 ml Balance 1050 ml Intake Oral 50 ml IV Total 1000 ml # Voids 1 # Bowel Movements 0 Result Diagram: 09/25/1761609/25/17616 Objective Remarks GENERAL: NAD, A&Ox3 HEAD: Normocephalic. NECK: Supple, trachea midline. No lymphadenopathy. EYES: No scleral icterus. No injection or drainage. CARDIOVASCULAR: Regular rate and rhythm without murmurs, gallops, or rubs. RESPIRATORY: Breath sounds equal bilaterally. No accessory muscle use. GASTROINTESTINAL: Abdomen soft, non-tender, nondistended. MUSCULOSKELETAL: No cyanosis, or edema. Scar over sternum SKIN: Warm and dry. NEURO: No focal neurological deficitis. A/P Problem List: (1) NSTEMI (non-ST elevated myocardial infarction) ICD Code: I21.4 - NSTEMI (non-ST elevated myocardial infarction) Status: Acute (2) Hyperglycemia ICD Code: R73.9 - Hyperglycemia, unspecified Status: Acute Assessment and Plan Assessment and plan 62-year-old female admitted with NSTEMI and hyperglycemia NSTEMI Asymptomatic this morning, when seen First Troponin was 0.75 and has trended upwards to 15.404 third troponin. Continue to monitor troponins every morning until trend downward it is recognized Cardiology following Patient is on a Heparin drip Morphine for pain Diabetes mellitus type 1 Follow blood sugars Insulin sliding scale Diabetic diet Hyperlipidemia Continue home crestor Fasting lipid profile in a.m. DVT prophylaxis Heparin drip Shaw Dawkins MD Sep 25, 2017 11:56
[2017-09-25] MEDS ORDERED: PILL SPLITTER OTHER PRN (12:15)
[2017-09-25] MEDS ORDERED: HEPARIN-NS/PF INJ 1,000 ML ONE (12:26)
[2017-09-25] MEDS ORDERED: MIDAZOLAM HCL 2 MG/2 ML VIAL ONE (12:26)
--- NOTE | 2017-09-25 12:39 | MB ---
cc: BOSSMNA FLOREZ DATE OF 1955 DATE OF CONSULTATION September 25, 2017 REASON FOR CONSULTATION Chest pain. Elevated troponins. HISTORY OF PRESENT ILLNESS 62-year-old female with past medical history significant for diabetes mellitus, CAD status post CABG x3 in 2014, hyperlipidemia, hypertension, who presented to the hospital with uncontrolled blood sugars, nausea, vomiting and chest pain. EKG showed sinus rhythm with inferior Q-waves, incomplete right bundle branch block and nonspecific ST changes. Troponin was markedly elevated. Thus cardiology has been consulted for a [id number] AK. The patient has been started on a heparin drip and has been admitted to telemetry for further management and evaluation. Currently she denies chest pain, shortness of breath , palpitations, syncope, dizziness, leg edema, PND, nausea, vomiting, diarrhea, fevers or chills. PAST MEDICAL HISTORY 1. Hypertension. 2. Hyperlipidemia. 3. CAD status post CABG. 4. Diabetes mellitus with insulin pump in place. 5. Diabetic retinopathy. PAST SURGICAL HISTORY 1. CABG x3 in October of 2015. 2. x2. 3. Appendectomy. 4. Bilateral carpal tunnel release. 5. Multiple trigger finger release surgeries. HOME MEDICATIONS 1. Zofran. 2. Crestor. ALLERGIES No known drug allergies. FAMILY HISTORY Both parents with type 2 diabetes mellitus. SOCIAL HISTORY Denies tobacco, alcohol or illicit drug use. PHYSICAL EXAMINATION VITAL SIGNS: Temperature 98.9, respiratory rate 18, heart rate 78, blood pressure 107/57, O2 sat 95% on 2 liters nasal cannula. GENERAL: She is awake, alert, oriented x3, in no acute distress. NECK: No JVD, no carotid bruits. HEART: Regular rate and rhythm. No murmurs, rubs or gallops. LUNGS: Clear to auscultation bilaterally. ABDOMEN: Benign. Obese. Positive bowel sounds. Soft, nontender, nondistended. EXTREMITIES: No cyanosis or edema. LABORATORY DATA Hemoglobin 11, hematocrit 34, platelet count 254. INR 1.1. Chemistries: Sodium 145, potassium 4.2, BUN 24, creatinine 1.5, glucose 149. Troponin 15.4. Lipase 117. Urinalysis - There is a significant amount of glucose, ketones. EKG: Sinus rhythm with an incomplete right bundle-branch block and inferior Q- waves. ECHOCARDIOGRAM: Done in 2014, shows a preserved LV systolic function. LEFT HEART CATHETERIZATION Done [place] [address] Lovett shows small citizen [place] coronary arteries with preserved LV systolic function. ASSESSMENT AND PLAN 62-year-old female with known coronary artery disease who presented with a non- ST-elevation AK. She remains afebrile, hemodynamically stable and chest pain- free. She has been started on heparin drip. Troponin is significantly increased. Glucose better controlled and the kidney function trending back to baseline. Her SUKHWINDER risk score is 3, [place] Class I with no clinical signs of heart failure. Given the patient's presentation with Non-STEMI, recommendation will be to take her to the Cardiac Catheterization Laboratory to further assess coronary artery anatomy as well as graft anatomy. The risks and benefits of left heart cath/PCI including but not limited to neurovascular trauma, infection , bleeding acute kidney injury, stroke, emergent bypass surgery and have been explained to the patient. The patient understands the risks and she is willing to proceed. RECOMMENDATIONS 1. Keep n.p.o. for left heart cath today. 2. Continue heparin drip. 3. Start beta-blockers. 4. KAREN inhibitors as tolerated by heart rate and blood pressure. 5. Start aspirin. Thank you for the opportunity to take part in the care of this patient. Further therapy to be determined. Bossman Florez MD DRAIN TILE MACHINE OPERATOR/SSB /12:04 PM /12:20 PM LEIA
[2017-09-25] MEDS ORDERED: SODIUM CHLOR 0.9% 1000 ML INJ 1,000 ML IV SCH (13:23)
[2017-09-25] MEDS ORDERED: CLOPIDOGREL 300 MG TAB PO ONE (13:30)
[2017-09-25] MEDS ORDERED: MISC INFORMATION XX ONE ×2 (13:30)
[2017-09-25] MEDS ORDERED: ONDANSETRON HCL 4 MG/2 ML VIAL IV PUSH PRN (13:30)
[2017-09-25] MEDS ORDERED: LIDOCAINE HCL 1% 50 ML VIAL INFIL PRN (13:30)
[2017-09-25] MEDS ORDERED: ATROPINE SULFATE 1 MG/ML VIAL IV PUSH PRN (13:30)
--- NOTE | 2017-09-25 14:11 | MA ---
cc: BOSSMAN FLOREZ DATE: 09/25/2017 PROCEDURE PERFORMED 1. Left heart catheterization. 2. Selective right and left coronary angiography. 3. Saphenous vein and PRADO angiography. 4. Left ventriculogram. 5. Selective right common femoral artery angiography. INDICATION Eft-[id number]-oynberglw FL. PROCEDURE DESCRIPTION Consent signed. The patient was brought in to the cardiac tailings dam laborer in a fasting state. The right groin was prepped and draped in a sterile fashion.Using 1% lidocaine for local anesthesia and a micropuncture kit, a 5- [place] sheath was inserted in the right common femoral artery. Right common femoral artery angiography was performed to confirm the position of the sheath then selective right and left coronary angiography was performed with JR4 and JL4 diagnostic catheters. This was followed by angiography of the saphenous vein graft and the PRADO graft with the JR multipurpose and an MARTINA catheter. Angiography was taken in multiple views. Then the JR4 diagnostic catheter was introduced into the ventricle over a wire. This was followed by pressure recordings, left ventriculogram and pullback. The patient tolerated the procedure well without complications. Estimated blood loss was less than 10 cc. Total contrast used was 70 cc. The right groin access site was closed with a Mynx device. RESULTS LEFT VENTRICLE The LVEDP was 17. There was no gradient upon pullback of the left ventricle to the aorta. Left ventriculogram revealed a symmetrically ellitot ventricle with estimated ejection fraction of 50%. ANGIOGRAPHY 1. The right coronary artery is a dominant vessel giving off the PDA. It has minimal luminal irregularities throughout and is calcified. It is a small vessel measuring 2 mm. It has 50% lesions from the proximal to the midsegment of the right coronary artery and SUKHWINDER-III flow, unchanged from previous cath. The PDA is patent. 2. The Left Main is small and patent, is giving off the left circumflex artery and the LAD. 3. The LAD is small and calcified, is 100% occluded in the midsegment and has competitive flow coming from the PRADO. 4. The left circumflex artery has minimal luminal irregularities throughout. Again, it is a small vessel measuring less than 2 mm, unchanged from previous cath. It is giving off three OM vessels all of which are small, tortuous and patent. GRAFT ANGIOGRAPHY 1. SVG to right coronary artery is occluded. 2. SVG to OM3 is occluded. 3. PRADO to the LAD is patent. It appears to have 70% lesion of the anastomosis , however, again this vessel is very small, not amenable to PCI. CONCLUSIONS 1. Elevated LVEDP. 2. 1/3 grafts patent. 3. [place] coronary artery severe disease. RECOMMENDATIONS Optimization of medical management. Start aspirin, Plavix and Imdur and continue KAREN inhibitor, beta darleen and long-acting statin. Continue the heparin drip for a total of 48 hours. Refer to cardiac rehab upon discharge. The patient is to follow up with Dr. Lovett upon discharge. Bossman Florez MD, MPH, [facility] INTERN/BT /1:38 PM /1:57 PM MTDD
[2017-09-25 15:28] LABS: APTT (PATIENT) 46.5 SEC (24.3-30.1)
[2017-09-25] MEDS: ASPIRIN EC 81 MG TABEC PO SCH (15:33)
[2017-09-25] MEDS: METOPROLOL TARTRATE 25 MG TAB PO SCH ×2 (15:33→20:51)
[2017-09-25] MEDS ORDERED: IOHEXOL 350 MG/ML 100 ML BTL (for Cath Lab) OTHER ONE (16:22)
[2017-09-25] MEDS ORDERED: HEPARIN-D5W 25,000 U/250 ML 250 ML IV PRN (19:30)
--- NOTE | 2017-09-25 20:27 | EKG ---
Date Performed: 09/25/2017 Time Performed: 05:57:56 PTAGE: 62 years EKG: Sinus rhythm rSr'(V1) - probable normal variant Inferior infarct - age undetermined Possible anterior infarct - a ge undetermined Low QRS voltages in precordial leads Diffuse nonspecific ST changes Compared to prior tracing no significant change Abnormal ECG PREVIOUS TRACING : 07/25/17 @ 2223 DOCTOR: Jose Angel Casanova Interpretating Date/Time 09/25/2017 20:26:51
--- NOTE | 2017-09-25 20:27 | EKG ---
Date Performed: 09/24/2017 Time Performed: 19:55:01 PTAGE: 62 years EKG: Sinus rhythm POSSIBLE LEFT ATRIAL ENLARGEMENT INCOMPLETE RIGHT BUNDLE BRANCH BLOCK ST DEVIATION AND MODERATE T-WA VE ABNORMALITY, CONSIDER ANTERIOR ISCHEMIA Compared to previous tracing, ST depressions are more prom inent, consider ischemia ABNORMAL ECG PREVIOUS TRACING : 09/24/2017 10.43 DOCTOR: Jose Angel Casanova Interpretating Date/Time 09/25/2017 20:25:35
--- NOTE | 2017-09-25 20:27 | EKG ---
Date Performed: 09/24/2017 Time Performed: 22:23:40 PTAGE: 62 years EKG: Sinus rhythm INCOMPLETE RIGHT BUNDLE BRANCH BLOCK INFERIOR MYOCARDIAL INFARCTION Diffuse ST changes, consider isc hemia Compared to prior tracing no significant change ABNORMAL ECG PREVIOUS TRACING : 09/24/2017 19.55 DOCTOR: Jose Angel Casanova Interpretating Date/Time 09/25/2017 20:26:05
[2017-09-25 21:57] LABS: APTT (PATIENT) 61.9 SEC (24.3-30.1)
[2017-09-26] VITALS (22 sets, daily range): BP systolic 104–129; BP diastolic 50–68; PULSE 52–72; RESP 18–20; TEMP 98–99; O2SAT 95–99
[2017-09-26] MEDS: SODIUM CHLOR 0.9% 1000 ML INJ 1,000 ML IV SCH ×2 (06:03→17:26)
[2017-09-26] MEDS: ISOSORBIDE MONONITRATE 30 MG TAB PO SCH (06:03)
[2017-09-26 06:31] LABS: AUTOMATED NEUTROPHIL # 4.9 TH/MM3 (1.8-7.7); BASOPHIL % 0.7 % (0.0-2.0); EOSINOPHIL % 0.7 % (0.0-4.0); HEMATOCRIT 34.4 % (35.0-46.0); HEMO FLAGS DIFF FINAL; LYMPH % 19.3 % (9.0-44.0); LYMPHOCYTE # 1.3 TH/MM3 (1.0-4.8); MEAN CELL VOLUME 88.6 FL (80.0-100.0); MEAN CORPUSCULAR HEMOGLOBIN 29.7 PG (27.0-34.0); MEAN CORPUSCULAR HGB CONC 33.6 % (32.0-36.0); MONO % 7.9 % (0.0-8.0); NEUT % 71.4 % (16.0-70.0); PLATELET COUNT 207 TH/MM3 (150-450); RED BLOOD COUNT 3.88 MIL/MM3 (4.00-5.30); RED CELL DISTRIBUTION WIDTH 13.9 % (11.6-17.2); WHITE BLOOD COUNT 6.9 TH/MM3 (4.0-11.0)
[2017-09-26 07:06] LABS: ALKALINE PHOSPHATASE 50 U/L (45-117); ALT (GPT) 24 U/L (10-53); ANION GAP 8 MEQ/L (5-15); AST (GOT) 53 U/L (15-37); BICARBONATE 21.8 MEQ/L (21.0-32.0); BLOOD UREA NITROGEN 16 MG/DL (7-18); CHLORIDE 114 MEQ/L (98-107); GLOMERULAR FILTRATION RATE 53 ML/MIN (>89); HDL CHOLESTEROL 47.3 MG/DL (40.0-60.0); LDL CHOLESTEROL 25 MG/DL (0-99); POTASSIUM 3.7 MEQ/L (3.5-5.1); SODIUM (NA) 144 MEQ/L (136-145); TOTAL BILIRUBIN ADULT 0.9 MG/DL (0.2-1.0)
[2017-09-26] MEDS: INSULIN ASPART SUPPLEMENTAL SCALE SQ SCH ×4 (08:00→21:00)
[2017-09-26] MEDS: ATORVASTATIN 80 MG TAB PO SCH (08:33)
[2017-09-26] MEDS: METOPROLOL TARTRATE 25 MG TAB PO SCH ×2 (08:33→20:26)
[2017-09-26] MEDS: ASPIRIN EC 81 MG TABEC PO SCH (08:33)
[2017-09-26] MEDS: SODIUM CHLORIDE 0.9% FLUSH 10 ML FLUSH IV FLUSH SCH ×2 (08:34→21:00)
[2017-09-26] MEDS: CLOPIDOGREL 75 MG TAB PO SCH (08:34)
[2017-09-26] MEDS ORDERED: LISI2.5T3 PO (13:39)
[2017-09-26] MEDS ORDERED: METO25TA3 PO (13:39)
--- NOTE | 2017-09-26 14:19 | EKG ---
Date Performed: 09/25/2017 Time Performed: 09:18:50 PTAGE: 62 years EKG: NORMAL Sinus rhythm OLD INFERIOR INFARCT DIFFUSE ST-T WAVE ABNORMALITIES, CANNOT EXCLUDE ISCHEMIA BUT CHANGES ARE SIMILI AR TO THE PRIOR TRACING. Abnormal ECG PREVIOUS TRACING : 09/25/2017 05.57 DOCTOR: Pierce Lovett Interpretating Date/Time 09/26/2017 14:18:05
--- NOTE | 2017-09-26 14:24 | HHI.PR ---
Subjective Remarks Troponin has trended back to 10.5. No need to follow troponins earlier. 48 hours of heparin IV has been recommended. This will be completed tomorrow. Heart catheter was performed and showed no area of local infarct. One of 3 grafts are patent. Medical management has been recommended as initial therapy included aspirin, Plavix, Imdur, KAREN inhibitor, beta darleen, and statin. Objective Vital Signs Date Time Temp Pulse Resp B/P (MAP) Pulse Ox O2 Delivery O2 Flow Rate FiO2 09/26/17 12:00 55 09/26/17 11:00 56 09/26/17 11:00 98.0 70 20 118/60 (79) 98 09/26/17 10:00 58 09/26/17 09:20 98 21 09/26/17 09:00 58 09/26/17 08:00 55 09/26/17 08:00 98.7 58 20 117/53 (74) 98 09/26/17 06:00 56 09/26/17 05:00 58 09/26/17 04:00 98.5 59 20 104/50 (68) 97 09/26/17 04:00 54 09/26/17 03:00 56 09/26/17 02:00 54 09/26/17 01:00 54 09/26/17 00:00 72 09/26/17 00:00 99.0 60 20 112/62 (79) 95 09/25/17 23:00 76 09/25/17 22:00 74 09/25/17 21:00 76 09/25/17 20:00 98.8 71 20 118/63 (81) 97 09/25/17 20:00 81 09/25/17 19:04 21 09/25/17 19:00 82 09/25/17 18:00 62 09/25/17 17:00 63 09/25/17 16:00 62 09/25/17 15:00 63 18 138/63 (88) 97 09/25/17 15:00 62 I/O 09/25/17 09/25/17 09/25/17 09/26/17 09/26/17 09/26/17 07:00 15:00 23:00 07:00 15:00 23:00 Intake Total 1050 ml 1730 ml 1440 ml Balance 1050 ml 1730 ml 1440 ml Intake Oral 50 ml 480 ml 440 ml IV Total 1000 ml 1250 ml 1000 ml # Voids 1 3 2 # Bowel Movements 0 Result Diagram: 09/26/17 0556 09/26/17 0556 Objective Remarks GENERAL: NAD, A&Ox3 HEAD: Normocephalic. NECK: Supple, trachea midline. No lymphadenopathy. EYES: No scleral icterus. No injection or drainage. CARDIOVASCULAR: Regular rate and rhythm without murmurs, gallops, or rubs. RESPIRATORY: Breath sounds equal bilaterally. No accessory muscle use. GASTROINTESTINAL: Abdomen soft, non-tender, nondistended. MUSCULOSKELETAL: No cyanosis, or edema. Scar over sternum SKIN: Warm and dry. NEURO: No focal neurological deficitis. A/P Problem List: (1) NSTEMI (non-ST elevated myocardial infarction) ICD Code: I21.4 - NSTEMI (non-ST elevated myocardial infarction) Status: Acute (2) Hyperglycemia ICD Code: R73.9 - Hyperglycemia, unspecified Status: Acute Assessment and Plan Assessment and plan 62-year-old female admitted with NSTEMI and hyperglycemia. She is feeling better today. Continue heparin for 24 more hours. Follow CBC and BMP. NSTEMI Asymptomatic this morning, when seen First Troponin was 0.75 and has trended upwards to 15.404 third troponin; now downward trend at 10.5. Continue to monitor troponins every morning until trend downward it is recognized Cardiology following Patient is on a Heparin drip Morphine for pain Diabetes mellitus type 1 Follow blood sugars Insulin sliding scale Diabetic diet Hyperlipidemia Continue home crestor Fasting lipid profile in a.m. DVT prophylaxis Heparin drip Shaw Dawkins MD Sep 26, 2017 14:24
[2017-09-26 21:05] LABS: APTT (PATIENT) 41.2 SEC (24.3-30.1)
[2017-09-26 22:24] LABS: APTT (PATIENT) 39.8 SEC (24.3-30.1)
[2017-09-27] VITALS (13 sets, daily range): BP systolic 127–129; BP diastolic 62–64; PULSE 52–64; RESP 18; TEMP 98.5–98.6; O2SAT 98–99
[2017-09-27] MEDS: ISOSORBIDE MONONITRATE 30 MG TAB PO SCH (06:40)
[2017-09-27 07:47] LABS: AUTOMATED NEUTROPHIL # 4.3 TH/MM3 (1.8-7.7); BASOPHIL % 0.6 % (0.0-2.0); EOSINOPHIL # 0.1 TH/MM3 (0-0.4); EOSINOPHIL % 2.2 % (0.0-4.0); HEMATOCRIT 33.6 % (35.0-46.0); HEMO FLAGS DIFF FINAL; LYMPH % 22.1 % (9.0-44.0); LYMPHOCYTE # 1.4 TH/MM3 (1.0-4.8); MEAN CELL VOLUME 87.6 FL (80.0-100.0); MEAN CORPUSCULAR HEMOGLOBIN 30.5 PG (27.0-34.0); MEAN CORPUSCULAR HGB CONC 34.8 % (32.0-36.0); MONO % 7.8 % (0.0-8.0); NEUT % 67.3 % (16.0-70.0); PLATELET COUNT 183 TH/MM3 (150-450); RED BLOOD COUNT 3.84 MIL/MM3 (4.00-5.30); WHITE BLOOD COUNT 6.4 TH/MM3 (4.0-11.0)
[2017-09-27 07:52] LABS: APTT (PATIENT) 53.4 SEC (24.3-30.1)
[2017-09-27] MEDS: INSULIN ASPART SUPPLEMENTAL SCALE SQ SCH (08:00)
[2017-09-27] MEDS: SODIUM CHLOR 0.9% 1000 ML INJ 1,000 ML IV SCH (09:18)
--- NOTE | 2017-09-27 09:20 | ECHRPT ---
Indication: CONCLUSIONS The left ventricular systolic function is normal with an estimated ejection fraction in the range of 60-65%. Normal left ventricular size. Wall thickness is normal. No regional wall motion abnormalities are present. BP: / HR: Rhythm: Sinus MEASUREMENTS (Male / Female) Normal Values Technical Quality:Good 2D ECHO LV Diastolic Diameter PLAX 3.5 cm 4.2 - 5.9 / 3.9 - 5.3 cm LV Systolic Diameter PLAX 2.1 cm IVS Diastolic Thickness 1.1 cm 0.6 - 1.0 / 0.6 - 0.9 cm LVPW Diastolic Thickness 1.1 cm 0.6 - 1.0 / 0.6 - 0.9 cm LV Relative Wall Thickness 0.6 M-MODE LV Diastolic Diameter MM 3.4 cm 4.2 - 5.9 / 3.9 - 5.3 cm LV Systolic Diameter MM 2.0 cm LV Ejection Fraction MM Teich 73.1 % IVS Diastolic Thickness MM 1.1 cm 0.6 - 1.0 / 0.6 - 0.9 cm LVPW Diastolic Thickness MM 1.1 cm 0.6 - 1.0 / 0.6 - 0.9 cm LV Relative Wall Thickness MM 0.6 0.24 - 0.42 / 0.22 - 0.42 LV Mass Index MM 60.1 g/m 49 - 115 / 43 - 95 g/m FINDINGS LEFT VENTRICLE The left ventricular systolic function is normal with an estimated ejection fraction in the range of 65-70%. Normal left ventricular size. Wall thickness is normal. No regional wall motion abnormalities are present. Bossman Smith MD (Electronically Signed) Final Date:27 September 2017 09:19
[2017-09-27] MEDS: CLOPIDOGREL 75 MG TAB PO SCH (10:44)
[2017-09-27] MEDS: METOPROLOL TARTRATE 25 MG TAB PO SCH (10:45)
[2017-09-27] MEDS: ATORVASTATIN 80 MG TAB PO SCH (10:45)
[2017-09-27] MEDS: ASPIRIN EC 81 MG TABEC PO SCH (10:45)
[2017-09-27] MEDS: SODIUM CHLORIDE 0.9% FLUSH 10 ML FLUSH IV FLUSH SCH (10:46)
--- NOTE | 2017-09-27 10:46 | PD.CARD.PN ---
Subjective Subjective Remarks No angina Objective Medications Current Medications Medications (Trade) Dose Ordered Sig/Marg[place] Route Start Time Stop Time Status Last Admin Sodium Chloride 1,000 ml @ 100 mls/hr Q10H IV 09/24/17 21:18 09/26/17 17:26 (NS Flush) 2 ml BID IV FLUSH 09/25/17 09:00 09/26/17 21:00 (NS Flush) 2 ml UNSCH PRN IV FLUSH 09/24/17 21:30 (Tylenol) 500 mg Q4H PRN PO 09/24/17 21:30 (D50w (Vial) Inj) 50 ml UNSCH PRN IV PUSH 09/24/17 21:30 (Glucagon Inj) 1 mg UNSCH PRN OTHER 09/24/17 21:30 (NovoLOG SUPPLEMENTAL SCALE) 1 ACHS SLIDING SCALE SQ 09/25/17 08:00 (Lipitor) 80 mg DAILY PO 09/25/17 09:00 09/26/17 08:33 (Morphine Inj) 4 mg Q3H PRN IV PUSH 09/24/17 23:30 (Ecotrin Ec) 81 mg DAILY PO 09/25/17 12:15 09/26/17 08:33 (Lopressor) 12.5 mg Q12HR PO 09/25/17 12:15 09/26/17 20:26 (Pill Splitter) 1 ea UNSCH PRN OTHER 09/25/17 12:15 (Atropine Inj) 0.5 mg UNSCH PRN IV PUSH 09/25/17 13:30 (Zofran Inj) 4 mg Q4H PRN IV PUSH 09/25/17 13:30 (Plavix) 75 mg DAILY PO 09/26/17 09:00 09/26/17 08:34 (Imdur) 30 mg DAILY@07 PO 09/26/17 07:00 09/27/17 06:40 Heparin Sodium/ Dextrose 250 ml @ 10 mls/hr TITRATE PRN IV 09/25/17 19:30 09/25/17 21:38 (Heparin Inj) 5,000 units UNSCH PRN IV 09/25/17 19:45 (Heparin Inj) 2,500 units UNSCH PRN IV 09/25/17 19:45 Vital Signs / I&O Vital Signs Date Time Temp Pulse Resp B/P (MAP) Pulse Ox O2 Delivery O2 Flow Rate FiO2 09/27/17 07:46 98.5 55 18 127/64 (85) 98 09/27/17 05:00 52 09/27/17 04:50 98.6 56 18 129/62 (84) 99 09/27/17 04:00 52 09/27/17 03:00 52 09/27/17 02:00 52 09/27/17 01:00 60 09/27/17 00:00 52 09/26/17 23:20 98.6 54 18 113/58 (76) 99 09/26/17 23:00 56 09/26/17 22:00 52 09/26/17 21:00 54 09/26/17 20:00 70 09/26/17 19:10 98.6 56 18 129/68 (88) 99 09/26/17 19:00 56 09/26/17 16:56 98.4 56 18 124/67 (86) 99 09/26/17 16:12 52 09/26/17 12:00 55 09/26/17 11:00 56 09/26/17 11:00 98.0 70 20 118/60 (79) 98 I/O 09/26/17 09/26/17 09/26/17 09/27/17 09/27/17 09/27/17 07:00 15:00 23:00 07:00 15:00 23:00 Intake Total 1440 ml 240 ml Balance 1440 ml 240 ml Intake Oral 440 ml 240 ml IV Total 1000 ml # Voids 2 2 Physical Exam Alert, Obese NAD Chest clear CV S1S2 RRR Laboratory Laboratory Tests Test 09/26/17 19:35 09/26/17 21:03 09/27/17 07:34 Activated Partial Thromboplast Time 41.2 SEC 39.8 SEC 53.4 SEC White Blood Count 6.4 TH/MM3 Red Blood Count 3.84 MIL/MM3 Hemoglobin 11.7 GM/DL Hematocrit 33.6 % Mean Corpuscular Volume 87.6 FL Mean Corpuscular Hemoglobin 30.5 PG Mean Corpuscular Hemoglobin Concent 34.8 % Red Cell Distribution Width 14.0 % Platelet Count 183 TH/MM3 Mean Platelet Volume 8.5 FL Neutrophils (%) (Auto) 67.3 % Lymphocytes (%) (Auto) 22.1 % Monocytes (%) (Auto) 7.8 % Eosinophils (%) (Auto) 2.2 % Basophils (%) (Auto) 0.6 % Neutrophils # (Auto) 4.3 TH/MM3 Lymphocytes # (Auto) 1.4 TH/MM3 Monocytes # (Auto) 0.5 TH/MM3 Eosinophils # (Auto) 0.1 TH/MM3 Basophils # (Auto) 0.0 TH/MM3 CBC Comment DIFF FINAL Differential Comment Assessment and Plan Problem List: (1) NSTEMI (non-ST elevated myocardial infarction) ICD Codes: I21.4 - NSTEMI (non-ST elevated myocardial infarction) Status: Acute (2) CAD (coronary artery disease) ICD Codes: I25.10 - Atherosclerotic heart disease of [place] coronary artery without angina pectoris Plan: Explaioned cath results in detail (3) S/P CABG (coronary artery bypass graft) ICD Codes: Z95.1 - S/P CABG (coronary artery bypass graft) Status: Acute Plan: Medical therapy Assessment and Plan Will F/U in office 1-2 weeks Discussed Condition With Pierce Lovett MD Sep 27, 2017 10:46
[2017-09-27] MEDS ORDERED: NITR1SUB3 SL (11:22)
[2017-09-27] MEDS ORDERED: ECASA81 PO (11:22)
[2017-09-27] MEDS ORDERED: PLAV75TA29 PO (11:22)
[2017-09-27] MEDS ORDERED: ISOS30TA3 PO (11:22)
--- NOTE | 2017-09-27 11:27 | HHI.DS ---
Discharge Summary Admission Date Sep 24, 2017 at 21:21 Discharge Date: Sep 27, 2017 Admitting Diagnosis HYPERGLYCEMIA; NSTEMI (1) NSTEMI (non-ST elevated myocardial infarction) ICD Code: I21.4 - NSTEMI (non-ST elevated myocardial infarction) Status: Acute (2) CAD (coronary artery disease) ICD Code: I25.10 - Atherosclerotic heart disease of [place] coronary artery without angina pectoris Procedures Cardiac catheter Brief History - From Admission 62-year-old female with a past medical history significant for CAD status post CABG, hyperlipidemia and insulin-dependent diabetes mellitus presents to the emergency department for uncontrolled hyperglycemia, nausea/vomiting and chest pain. The patient was seen in the ED earlier today where she was treated for hyperglycemia and discharged home. She continued to have high blood sugars, nausea with emesis and developed left sided chest pain/pressure and returned for further evaluation. She states the symptoms are identical to when she had her previous SC 2 years ago. Troponin found to be 0.75. EKG significant for new ST depressions in the lateral leads. CBC/BMP: 09/27/17 0734 09/26/17 0556 Significant Findings Laboratory Tests Test 09/24/17 19:50 09/24/17 22:15 09/24/17 22:30 09/25/17 06:17 White Blood Count 14.0 TH/MM3 (4.0-11.0) 13.5 TH/MM3 (4.0-11.0) Neutrophils (%) (Auto) 92.8 % (16.0-70.0) 86.4 % (16.0-70.0) Lymphocytes (%) (Auto) 2.3 % (9.0-44.0) 6.2 % (9.0-44.0) Neutrophils # (Auto) 13.0 TH/MM3 (1.8-7.7) 11.6 TH/MM3 (1.8-7.7) Lymphocytes # (Auto) 0.3 TH/MM3 (1.0-4.8) 0.8 TH/MM3 (1.0-4.8) Activated Partial Thromboplast Time 21.2 SEC (24.3-30.1) 66.4 SEC (24.3-30.1) Blood Urea Nitrogen 31 MG/DL (7-18) 24 MG/DL (7-18) Creatinine 1.74 MG/DL (0.50-1.00) 1.50 MG/DL (0.50-1.00) Random Glucose 446 MG/DL (74-106) 149 MG/DL (74-106) Potassium Level 5.2 MEQ/L (3.5-5.1) Carbon Dioxide Level 19.7 MEQ/L (21.0-32.0) Estimat Glomerular Filtration Rate 30 ML/MIN (>89) 35 ML/MIN (>89) Total Creatine Kinase 204 U/L (26-192) 211 U/L (26-192) 615 U/L (26-192) Creatine Kinase MB 7.1 NG/ML (0.5-3.6) 11.5 NG/ML (0.5-3.6) 33.2 NG/ML (0.5-3.6) Troponin I 0.75 NG/ML (0.02-0.05) 2.11 NG/ML (0.02-0.05) 15.40 NG/ML (0.02-0.05) Creatine Kinase MB % 5.5 % (0.0-4.0) 5.4 % (0.0-4.0) Urine Glucose (UA) 1000 mg/dL (NEG) Urine Ketones 40 mg/dL (NEG) Urine Bacteria RARE /hpf (NONE) Urine Mucus FEW /lpf (OCC) Red Blood Count 3.92 MIL/MM3 (4.00-5.30) Hemoglobin 11.4 GM/DL (11.6-15.3) Hematocrit 34.8 % (35.0-46.0) Monocytes # (Auto) 1.0 TH/MM3 (0-0.9) Calcium Level 8.4 MG/DL (8.5-10.1) Chloride Level 113 MEQ/L (98-107) Test 09/25/17 14:28 09/25/17 20:59 09/26/17 05:56 09/26/17 19:35 Activated Partial Thromboplast Time 46.5 SEC (24.3-30.1) 61.9 SEC (24.3-30.1) 41.2 SEC (24.3-30.1) Red Blood Count 3.88 MIL/MM3 (4.00-5.30) Hemoglobin 11.5 GM/DL (11.6-15.3) Hematocrit 34.4 % (35.0-46.0) Neutrophils (%) (Auto) 71.4 % (16.0-70.0) Creatinine 1.06 MG/DL (0.50-1.00) Random Glucose 107 MG/DL (74-106) Total Protein 5.7 GM/DL (6.4-8.2) Albumin 2.7 GM/DL (3.4-5.0) Calcium Level 8.0 MG/DL (8.5-10.1) Aspartate Amino Transf (AST/SGOT) 53 U/L (15-37) Chloride Level 114 MEQ/L (98-107) Estimat Glomerular Filtration Rate 53 ML/MIN (>89) Troponin I 10.50 NG/ML (0.02-0.05) Cholesterol Level 94 MG/DL (120-200) Test 09/26/17 21:03 09/27/17 07:34 Activated Partial Thromboplast Time 39.8 SEC (24.3-30.1) 53.4 SEC (24.3-30.1) Red Blood Count 3.84 MIL/MM3 (4.00-5.30) Hematocrit 33.6 % (35.0-46.0) Hospital Course Mrs. Ruelas is a 62-year-old female. She is admitted secondary to having chest pain and is discovered to have NSTEMI. She had a cardiac catheter which showed diffuse disease with no stent double area. A specific area of infarct is not identified. Presently she is chest pain-free and she has been monitored for 48 hours while on a heparin drip post catheterization. At 4 PM today she is medically cleared by cardiology for discharge in treatments have been adjusted for her to maximize her cardiac status. Outpatient follow-up with cardiology and PCP plan. Pt Condition on Discharge: Stable Discharge Disposition: Discharge Home Discharge Time: <= 30 minutes Discharge Instructions DIET: Follow Instructions for: Heart Healthy Diet Activities you can perform: Regular-No Restrictions Follow up Referrals: Cardiology - 2 Weeks PCP Follow-up - 2 Weeks New Medications: Nitroglycerin SL (Nitroglycerin SL) 0.4 Mg Subl 0.4 MG SL DIRECTED PRN for CHEST PAIN, #100 TAB.SL 0 Refills ONE TABLET UNDER THE TONGUE NEEDED FOR CHEST PAIN, MAY REPEAT EVERY FIVE MINUTES FOR A TOTAL OF 3 DOSES OR CALL 911 IF NO RELIEF Aspirin DR (Aspirin DR) 81 Mg Tabdr 81 MG PO DAILY for Blood Clot Prevention, #30 TAB Clopidogrel (Plavix) 75 Mg Tab 75 MG PO DAILY for Blood Clot Prevention, #30 TAB Isosorbide Mononitrate ER (Isosorbide Mononitrate ER) 30 Mg Markos 30 MG PO DAILY@07 for Angina, #30 TAB Continued Medications: Insulin Lispro (Human) Inj (Humalog Inj) 1,000 Unit/10 Ml Vial 1 UNITS SQ CONTINUOUS for Blood Sugar Management, VIAL 0 Refills Max dose at bedtime:( )units; sugars< 70,(0)units; sugars 150-199,(1)unit; sugars 200-249,(3)units; sugars 250-299,(5)units; sugars 300-349,(7)units; sugars more than 349,(9)units. Insulin Lispro (Human) Inj (Humalog Inj) 1,000 Unit/10 Ml Vial 1.5 UNITS SQ CONTINUOUS for Blood Sugar Management, VIAL 0 Refills Max dose at bedtime:( )units; sugars < 70,(0)units; sugars 150-199,(2)units; sugars 200-249,(4)units; sugars 250-299,(7)units; sugars 300-349,(10)units; sugars more than 349,(12)units. Insulin Lispro (Human) Inj (Humalog Inj) 1,000 Unit/10 Ml Vial 5-25 UNITS SQ ACHS for Blood Sugar Management, VIAL 0 Refills Max dose at bedtime:( )units; sugars < 70,(0)units; sugars 150-199,(5)units; sugars 200-249,(10)units; sugars 250-299,(15)units; sugars 300-349,(20)units; sugars more than 349,(25)units. Lisinopril (Lisinopril) 2.5 Mg Tab 2.5 MG PO BID, #30 TAB 0 Refills Metoprolol Tartrate (Metoprolol Tartrate) 25 Mg Tab 12.5 MG PO DAILY, #60 TAB 0 Refills Ondansetron (Zofran) 4 Mg Tab 4 MG PO Q6HR PRN for NAUSEA OR VOMITING, #15 TAB 0 Refills Rosuvastatin (Crestor) 40 Mg Tab 40 MG PO DAILY for Cholesterol Management, TAB 0 Refills Shaw Dawkins MD Sep 27, 2017 11:27
== END 2017-09-27 12:45 | disposition home or self-care (01) | DRG 281 ==
LOC: NEPE 19:21 → NEDA 21:21 → HCIS 23:45
PROVIDERS: ADMIT Hospitalist; ATTEND Hospitalist
PROC: B2111ZZ Fluoroscopy of Multiple Coronary Arteries using Low Osmolar Contrast (ICD-10-PCS; 2017-09-25)
PROC: B2151ZZ Fluoroscopy of Left Heart using Low Osmolar Contrast (ICD-10-PCS; 2017-09-25)
PROC: B41F1ZZ Fluoroscopy of Right Lower Extremity Arteries using Low Osmolar Contrast (ICD-10-PCS; 2017-09-25)
PROC: B2181ZZ Fluoroscopy of Left Internal Mammary Bypass Graft using Low Osmolar Contrast (ICD-10-PCS; 2017-09-25)
PROC: B2131ZZ Fluoroscopy of Multiple Coronary Artery Bypass Grafts using Low Osmolar Contrast (ICD-10-PCS; 2017-09-25)
PROC: 4A023N7 Measurement of Cardiac Sampling and Pressure, Left Heart, Percutaneous Approach (ICD-10-PCS; principal; 2017-09-25 11:15)
DX: I21.4 Non-ST elevation (NSTEMI) myocardial infarction (principal); I25.810 Atherosclerosis of coronary artery bypass graft(s) without angina pectoris; E11.65 Type 2 diabetes mellitus with hyperglycemia; I45.10 Unspecified right bundle-branch block; E11.319 Type 2 diabetes mellitus with unspecified diabetic retinopathy without macular edema; I25.10 Atherosclerotic heart disease of native coronary artery without angina pectoris; I10 Essential (primary) hypertension; E78.5 Hyperlipidemia, unspecified; E87.5 Hyperkalemia; N28.9 Disorder of kidney and ureter, unspecified; I25.2 Old myocardial infarction; I25.84 Coronary atherosclerosis due to calcified coronary lesion; Z79.4 Long term (current) use of insulin; Z83.3 Family history of diabetes mellitus; Z95.1 Presence of aortocoronary bypass graft; Z96.41 Presence of insulin pump (external) (internal)
CPT/HCPCS: 71010; 80048; 80053; 80061; 81001; 82550; 82552; 82948; 83690; 84484; 85025; 85610; 85730; 93005; 93308; 93459; 96361; 96372; 96374; 99152; 99153; C1760; C1769; C1893; G0269; J1644; J1815; J2250; J2270; J2405; J3010; J7030; Q9967

== ENCOUNTER 2017-11-06 07:57 | Day surgery (SDC) | payer BC, OTHER ==
[2017-11-06] VITALS (12 sets, daily range): BP systolic 115–149; BP diastolic 55–81; PULSE 51–76; RESP 16–18; TEMP 97.6–98.2; O2SAT 95–99
[~2017-11-06] VITALS: Ht 154.9 cm; Wt 78.5 kg
[~2017-11-06 07:57] MED LIST changes: -ACET325 PO; -CIPR500T2 PO; +ECASA81 PO; -HUMSS; -HYDR-2768 PO; +ISOS30TA3 PO; -LIPI20TA PO; +LISI2.5T3 PO; -LISI2.5T55 PO; -LORTA5 PO; +METO25TA3 PO; -METO50TA PO; +NITR1SUB3 SL; +PLAV75TA29 PO; -ST JTAB PO; -SUPETAB30 PO; -TRAM50 PO; -VITA500T49 PO
[2017-11-06] MEDS ORDERED: IOHEXOL 350 MG/ML 100 ML BTL (for Cath Lab) OTHER ONE (07:58)
[2017-11-06] MEDS ORDERED: OCUVTAB4 PO (08:47)
[2017-11-06] MEDS ORDERED: ROSU20 PO (08:49)
[2017-11-06 09:00] LABS: AUTOMATED NEUTROPHIL # 4.2 TH/MM3 (1.8-7.7); BASOPHIL # 0.1 TH/MM3 (0-0.2); BASOPHIL % 1.1 % (0.0-2.0); EOSINOPHIL # 0.2 TH/MM3 (0-0.4); EOSINOPHIL % 3.8 % (0.0-4.0); HEMATOCRIT 40.7 % (35.0-46.0); HEMOGLOBIN 14.2 GM/DL (11.6-15.3); LYMPH % 15.5 % (9.0-44.0); LYMPHOCYTE # 0.9 TH/MM3 (1.0-4.8); MEAN CELL VOLUME 87.4 FL (80.0-100.0); MEAN CORPUSCULAR HEMOGLOBIN 30.4 PG (27.0-34.0); MEAN CORPUSCULAR HGB CONC 34.8 % (32.0-36.0); MONO % 6.2 % (0.0-8.0); MONOCYTE # 0.4 TH/MM3 (0-0.9); NEUT % 73.4 % (16.0-70.0); PLATELET COUNT 244 TH/MM3 (150-450); RED BLOOD COUNT 4.66 MIL/MM3 (4.00-5.30); WHITE BLOOD COUNT 5.7 TH/MM3 (4.0-11.0)
[2017-11-06] MEDS ORDERED: NS 1000P @30 MLS/HR (KVO) IV SCH (09:00)
[2017-11-06 09:08] LABS: PROTHROMBIN TIME - PATIENT 10.5 SEC (9.8-11.6)
[2017-11-06 09:27] LABS: CALCIUM 9.4 MG/DL (8.5-10.1); CREATININE 1.14 MG/DL (0.50-1.00)
[2017-11-06 09:28] LABS: BICARBONATE 27.5 MEQ/L (21.0-32.0)
[2017-11-06] MEDS ORDERED: HEPARIN-NS/PF INJ 1,000 ML ONE (09:36)
[2017-11-06] MEDS ORDERED: MIDAZOLAM HCL 2 MG/2 ML VIAL ONE (09:50)
[2017-11-06] MEDS ORDERED: NITROGLYCERIN INJ 5 ML ONE (09:50)
[2017-11-06] MEDS ORDERED: HEPARIN SODIUM - IV 10,000 UNITS/10 ML VIAL ONE (09:50)
[2017-11-06] MEDS ORDERED: BIVALIRUDIN 250 MG VIAL ONE (10:20)
[2017-11-06] MEDS ORDERED: CLOPIDOGREL 300 MG TAB ONE (11:09)
[2017-11-06] MEDS ORDERED: BIVALIRUDIN INJ 250 MG in SODIUM CHLORIDE 0.9% INJ 50 ML IV SCH (11:24)
--- NOTE | 2017-11-06 11:25 | CATHPROC ---
[employer] HIS Report Study Information Study Number Admission Scheduled Start Study Start [id number] Nov 06 2017 7:57AM 11/06/2017 Nov 06 2017 9:30AM House Service Cardiac Catheterization Admit Source Facility Department Other [facility] - Airplane First Officer Physician and Clinical Staff Initial Pierce Jefferson Waste Picker Kaur Lomas,KEV Waste Picker Radha Palomo BSN Recorder Adilene Tovar,RT(R) Recorder Lauren Leo ,RT(R) Scrub Christopher Mota,RT(R) Procedures Performed Procedure Location (Site) Vessel Name Coronary Angiograms RCA Right Coronary Drug Eluting Inflatio RCA Mid Right Coronary Drug Eluting Inflatio RCA Prox Right Coronary L Heart Cath PTCA RCA Mid Right Coronary PTCA RCA Prox Right Coronary Wire insertion Fem Art (right) Femoral Art Equipment Time Investment Manager Description Size Mfg Part Number Used/Scraped WIRE, BALANCE MIDDLEWEIGHT [id number] 09:47 [employer] 190CM Used 190CM *[id number] WIRE, HI TORQUE ALLSTAR [id number] 10:44 [employer] 190CM Used 190CM *[id number] TRANSDUCER, TRUWAVE [id number] 09:47 CERVANTES VERGARA * Used W/STOCKCOCK *[id number] [phone] *[id number] [phone] *[id number] 09:47 [employer] INDUSTRIES PACK, CCL CUSTOM * Used *[id number] 09:47 [employer] PACER PEN, SKIN DUAL W/ RULER * Used *[id number] 10:25 [employer] BALLOON, 2.0 X 30MM EUPHORA 30MM Used *[id number] BALLOON, 2.5 X 15MM NC [id number] 11:03 MEDTRONIC 15MM Used EUPHORA *[id number] BALLOON, 2.5 X 20MM NC [id number] 10:36 MEDTR[employer] 20MM Used EUPHORA *[id number] BALLOON, 2.75 X 20MM NC [id number] 10:47 [employer] 20MM Used EUPHORA *[id number] 10:40 [employer]IC STENT, 2.5 30MM ARCHIE 2.5 30MM Used *[id number] 10:58 MEDTR[employer]IC STENT, 3.0 34MM ARCHIE 3.0 34MM [id number] Used [id number] 10:33 [employer] 30 RICHARD INDEFLATOR Used *[id number] 09:47 [employer] SHEATH, FR6.5 PRELUDE 11CM FR 6.5 038ACT Used *[id number] 09:47 [employer] WIRE, 3MMJ .035 180CM 180CM Used *[id number] PROBE COVER, STERILE [id number] 10:16 [employer] * Used ULTRASOUND W/ GEL *[id number] 09:47 NAMIC MANIFOLD, 4 PORT * Used *[id number] 09:47 [employer] OMNIPAQUE, 350 MG, 100ML 100ML [id number] Used [id number] 09:47 [employer] BLANKET,WARM AIR CCL * Used *[id number] Equipment Model, Serial, Lot Number and Expiration Data Description Model Number Serial Number Lot Number Expiration Date BALLOON, 2.5 X 15MM NC [id number] 06-07-2019 EUPHORA STENT, 2.5 30MM ARCHIE [id number] 03-13-2019 STENT, 3.0 34MM ARCHIE [id number] 06-19-2019 History: Current Medications Medication Dosage/Unit Route Frequency Last Date/Time Taken Insulin LISINOPRIL Beta Amol PLAVIX ASA NTG SL CRESTOR History: Allergies Allergy Reaction No Known Allergies History: Risk Factors Family History of Hypertension Dyslipidemia Previous ID Previous Heart Failure Premature CAD Yes Yes No Yes No Prior Valve Prior PCI Prior CABG Prior CABGDate Surgery No No Yes 10/16/2014 Cerebrovascular Peripheral Artery Chronic Lung On Dialysis Diabetes Diabetes Therapy Disease Disease Disease No No No No Yes Insulin History: Symptoms/Diagnosis Selection Items Chest pain History: Stress Tests Stress or Imaging Studies Performed Yes Standard Exercise Stress Test No Stress Echo No Stress Test SPECT Stress Test SPECT Result Stress Test SPECT Ischemia Risk/Extent Yes Positive High Stress Test CMR No Cardiac CTA Coronary Calcium Score No No History: Other Disease Selection Items CAD HTN History: Other Current Smoker No Labs Hgb (g/dl) Hct (%) WBC (l/cumm) Platelets (thousands) 11.60-17.00 35.00-51.00 4.00-11.00 150.00-450.00 14.2 40.7 5.7 244 Glucose (mg/dl) BUN (mg/dl) Creatinine (mg/dl) BUN:Creatinine (1:x) 74.00-106.00 7.00-18.00 0.50-1.30 10.00-20.00 190 21 1.1 19.1 Na (meq/l) K (meq/l) 136.00-145.00 3.50-5.10 139 4.3 INR (PTT:PT) 0.90-1.10 1 CPK-MB (ng/ML) 0.50-3.60 Not Drawn Medication Medication Total Dose (Bolus/Oral) Medication Total Dosage/Unit 1% XYLOCAINE 20 mL ANGIOMAX BOLUS 11.7 mL FENTANYL 50 mcg PLAVIX 300 mg VERSED 2 mg Medications (Bolus/Oral) Medication Time Given Dosage/Unit Administered By Reason VERSED 11/06/2017 9:59:28 AM 1 mg Radha Palomo 1 mg VERSED given in lab by Radha Palomo BSN in Left Antecubital via Peripheral IV. Ordered Pierce Pelaez. VERSED 11/06/2017 10:01:20 AM 1 mg Radha Palomo 1 mg VERSED given in lab by Radha Palomo BSN in Left Antecubital via Peripheral IV. Ordered Pierce Pelaez. 1% XYLOCAINE 11/06/2017 10:01:47 AM 20 mL Pierce Lovett 20 mL 1% XYLOCAINE given in lab by Pierce Lovett in Right Groin via Subcutaneous. Ordered by Pierce Lovett. FENTANYL 11/06/2017 10:12:00 AM 50 mcg Kaur Lomas 50 mcg FENTANYL given in lab by Kaur Lomas, KEV via Peripheral IV. Ordered by Pierce Lovett. ANGIOMAX BOLUS 11/06/2017 10:22:00 AM 11.7 mL Kaur Lomas 11.7 mL ANGIOMAX BOLUS given in lab by Kaur Lomas, KEV in Left Antecubital via Peripheral IV. Ord ered by Pierce Lovett. PLAVIX 11/06/2017 11:13:00 AM 300 mg Kaur Lomas 300 mg PLAVIX given in lab by Kaur Lomas, RN via Oral. Ordered by Pierce Lovett. Medication (Drip) Medication Time Given Dosage/Unit Concentration/Unit Diluent (ml) Solution ANGIOMAX DRIP 11/06/2017 10:24:00 AM 1.75 mg/kg/hr 250 mg 50 NaCl .9 1.75 mg/kg/hr ANGIOMAX DRIP given in lab by Kaur Lomas RN in Left Antecubital via Peripheral IV . Pump/Drip Flow = 27.2 ml/hr using NaCl .9 with a concentration of 250 mg in 50 ml. Ordered by Pierce Lovett. ANGIOMAX DRIP 11/06/2017 11:18:41 AM 0 units/hr 0 STOPPED 0 units/hr ANGIOMAX DRIP STOPPED given in lab by Kaur Lomas, KEV in Left Antecubital. Pump/Drip F low = 27.2 ml/hr using [Solution Name]. Ordered by Pierce Lovett. [employer] Solutions 11/06/2017 9:36:37 AM 50 mL (IV) 500 NaCl .9 Patient arrived on [employer] [facility] in Left Antecubital via Peripheral IV. Pump/Drip Flow using NaCl .9. Initial Case Assessment Cardiovascular HR Rhythm NIBP Chest Pain 55 sascha 136/70 0 Edema Present Skin color Skin None Normal Warm Dry Circulatory - Right Pulses Dorsalis Pedis Femoral 2 2 Scale (0,1,2,3,4,d) Circulatory - Left Pulses Dorsalis Pedis Femoral 2 2 Scale (0,1,2,3,4,d) Neurological State Oriented to time-place- Alert Moves all extremities person Respiration - General Respiration Rate SpO2 (%) (B/min) 15 98 Final Case Assessment Cardiovascular HR Rhythm NIBP Chest Pain 61 sascha 136/69 0 Edema Present Skin color Skin None Normal Warm Dry Circulatory - Right Pulses Dorsalis Pedis Femoral 2 2 Scale (0,1,2,3,4,d) Circulatory - Left Pulses Dorsalis Pedis Femoral 2 2 Scale (0,1,2,3,4,d) Neurological State Oriented to time-place- Alert Moves all extremities person Respiration - General Respiration Rate SpO2 (%) (B/min) 13 98 Chronological Log Time Study Chronological Log 9:34:17 Patient arrived via Bed. 9:34:18 Patient Name, D.O.B, / Armband Verified By R.N. 9:36:05 Consent signed by the physician and the patient and verified by the Airplane First Officer staff. 9:36:23 Patient has been NPO for More than 6Hrs. 9:36:24 Skin Breakdown- none per patient 9:36:26 Patient Warmer Placed on the Table. 9:36:28 Jarret Prominences Protected 9:36:36 A # 20 IV was noted in the Antecubital (left). Grade = 0 9:36:37 Patient arrived on [employer] [facility] in Left Antecubital via Peripheral IV. Pump/Drip Flow using NaCl .9. Vitals capture started with the following parameters, Patient=Adult, Interval=5 min, Initial Pr vumwal=220 mmHg, 9:36:47 Deflation Rate=5 mmHg, Cuff placed on Left Arm 9:37:55 History and physical on the chart or being dictated. Assessment: Initial Case, HR=55 BPM, Rhythm=sascha, AHIV=665/70 mmhg, Chest Pain=0, Edema=None, Color=Normal, Skin = Warm, Dry Right Pulses: Dileep Ped=2, Femoral=2 9:37:56 Left Pulses: Dileep Ped=2, Femoral=2 Neurological: State=Alert, Ox3, ALEGRE Respiration: Resp=15 B/min, SpO2=98 % 9:39:07 HR=65 bpm, WTUO=177/70 mmhg, Resp=8 B/min, Menezes=2 9:40:51 Reference ECG taken 9:42:30 HR=49 bpm, FTBD=944/64 mmhg, SpO2=97.0 %, Resp=17 B/min 9:42:34 Verbal Stimulation=2 Physical Stimulation=2 Airway=2 Respiration=2 TOTAL=8. (0=absent, 1=millard ited, 2=present) 9:45:59 MD arrived. 9:46:05 Bilateral groins prepped with 2% chlorhexidine, and draped after a 3 minute waiting time. 9:48:10 HR=52 bpm, ACOG=644/69 mmhg, SpO2=97.0 %, Resp=17 B/min, Menezes=2 9:51:15 Pressure channel 1 zeroed. 9:53:03 HR=55 bpm, EPLJ=195/63 mmhg, SpO2=98.0 %, Resp=17 B/min, Menezes=2 9:57:31 HR=59 bpm, JNSX=222/60 mmhg, SpO2=98.0 %, Resp=15 B/min, Menezes=2 Time Out. Correct patient, correct procedure, correct physician, power injector not loaded with contrast with surgical 9:59:26 team present. Time Out Concurred by MD and individual staff in procedure. 1 mg VERSED given in lab by Radha Palomo BSN in Left Antecubital via Peripheral IV. Ord ered by Bony, 9:59:28 Pelayo. 10:00:00 Case Start 1 mg VERSED given in lab by Radha Palomo BSN in Left Antecubital via Peripheral IV. Ord ered by Bony, 10:01:20 Pelayo. 10:01:47 20 mL 1% XYLOCAINE given in lab by Pierce Lovett in Right Groin via Subcutaneous. Ordered b y Pierce Lovett. 10:02:32 HR=56 bpm, ETMN=854/55 mmhg, SpO2=96.0 %, Resp=19 B/min, Menezes=2 10:08:14 HR=52 bpm, IDXC=594/63 mmhg, SpO2=97.0 %, Resp=13 B/min, Menezes=2 10:12:00 50 mcg FENTANYL given in lab by Kaur Lomas, KEV via Peripheral IV. Ordered by Asia Lovett 10:13:05 HR=53 bpm, MLEL=479/62 mmhg, SpO2=97.0 %, Resp=15 B/min, Menezes=2 10:17:27 HR=50 bpm, GELU=195/57 mmhg, SpO2=95.0 %, Resp=14 B/min, Menezes=2 10:17:50 Access site was Right Femoral Artery via ultrasound. 10:18:14 A SHEATH, FR6.5 PRELUDE 11CM FR 6.5 was advanced into the Fem Art (right) using the Percuta neous technique. A JR 4.0 GUIDE CATHETER FR 6 was advanced over a wire. OMNIPAQUE, 350 MG, 100ML 100ML was used for 10:18:54 injections. Recorded Pressure: Ao, HR=55, Condition=Condition 1 10:20:17 (Aorta) Ao 117/49/74 10:21:10 The RCA was injected and visualized at various angles. OMNIPAQUE, 350 MG, 100ML 100ML used . 11.7 mL ANGIOMAX BOLUS given in lab by Kaur Lomas, KEV in Left Antecubital via Peripheral I V. Ordered by 10:22:00 Pierce Lovett. 10:22:28 HR=53 bpm, WZYP=446/61 mmhg, SpO2=95.0 %, Resp=13 B/min, Menezes=2 1.75 mg/kg/hr ANGIOMAX DRIP given in lab by Kaur Lomas, RN in Left Antecubital via Periphe ral IV. Pump/Drip 10:24:00 Flow = 27.2 ml/hr using NaCl .9 with a concentration of 250 mg in 50 ml. Ordered by Sanjiv Lovett. 10:25:12 Catheter was removed A JR 3.5 GUIDE CATHETER FR 6 was advanced over a wire. OMNIPAQUE, 350 MG, 100ML 100ML was used for 10:25:44 injections. 10:27:29 HR=55 bpm, DKME=617/64 mmhg, SpO2=94.0 %, Resp=13 B/min, Menezes=2 10:27:35 A WIRE, BALANCE MIDDLEWEIGHT 190CM 190CM was inserted via Fem Art (right). 10:30:13 Interventional wire has crossed the lesion A BALLOON, 2.0 X 30MM EUPHORA 30MM was inserted over WIRE, BALANCE MIDDLEWEIGHT 190CM 190CM via the 10:31:49 Fem Art (right). A BALLOON, 2.0 X 30MM EUPHORA 30MM over a WIRE, BALANCE MIDDLEWEIGHT 190CM 190CM in the RCA Mid was 10:31:52 inflated using a 30 RICHARD INDEFLATOR at 16 richard for 40 sec. 10:32:30 HR=58 bpm, MXAP=240/65 mmhg, SpO2=95.0 %, Resp=14 B/min A BALLOON, 2.0 X 30MM EUPHORA 30MM over a WIRE, BALANCE MIDDLEWEIGHT 190CM 190CM in the RCA Mid was 10:32:51 inflated using a 30 RICHARD INDEFLATOR at 16 richard for 25 sec. A BALLOON, 2.0 X 30MM EUPHORA 30MM over a WIRE, BALANCE MIDDLEWEIGHT 190CM 190CM in the RCA Pro x was 10:34:01 inflated using a 30 RICHARD INDEFLATOR at 20 richard for 30 sec. 10:35:19 Balloon Removed. A BALLOON, 2.5 X 20MM NC EUPHORA 20MM was inserted over WIRE, BALANCE MIDDLEWEIGHT 190CM 190CM via 10:36:38 the Fem Art (right). A BALLOON, 2.5 X 20MM NC EUPHORA 20MM over a WIRE, BALANCE MIDDLEWEIGHT 190CM 190CM in the RCA Mid 10:37:09 was inflated using a 30 RICHARD INDEFLATOR at 18 richard for 30 sec. 10:37:29 HR=57 bpm, ZISB=697/64 mmhg, SpO2=96.0 %, Resp=12 B/min A BALLOON, 2.5 X 20MM NC EUPHORA 20MM over a WIRE, BALANCE MIDDLEWEIGHT 190CM 190CM in the RCA Prox 10:38:09 was inflated using a 30 RICHARD INDEFLATOR at 18 richard for 25 sec. 10:39:07 Balloon Removed. A STENT, 2.5 30MM ARCHIE 2.5 30MM was advanced through a JR 3.5 GUIDE CATHETER FR 6 over a WIRE, BALANCE 10:41:42 MIDDLEWEIGHT 190CM 190CM. 10:43:05 HR=59 bpm, TIFO=424/67 mmhg, SpO2=97.0 %, Resp=14 B/min 10:43:21 Stent not deployed. Stent removed and intact. 10:44:35 A WIRE, HI TORQUE ALLSTAR 190CM 190CM was inserted via Fem Art (right). 10:47:32 HR=57 bpm, YRRU=075/66 mmhg, SpO2=97.0 %, Resp=16 B/min A BALLOON, 2.75 X 20MM NC EUPHORA 20MM was inserted over WIRE, HI TORQUE ALLSTAR 190CM 190CM vi a the 10:47:58 Fem Art (right). A BALLOON, 2.75 X 20MM NC EUPHORA 20MM over a WIRE, HI TORQUE ALLSTAR 190CM 190CM in the RCA Mi d was 10:48:17 inflated using a 30 RICHARD INDEFLATOR at 18 richard for 20 sec. 10:49:23 Balloon Removed. A STENT, 2.5 30MM ARCHIE 2.5 30MM was advanced through a JR 3.5 GUIDE CATHETER FR 6 over a WIRE, HI TORQUE 10:50:26 ALLSTAR 190CM 190CM. 10:52:03 BMW Wire removed A STENT, 2.5 30MM ARCHIE 2.5 30MM was deployed using a 30 RICHARD INDEFLATOR at 14 atmospheres for 40 seconds in 10:52:24 the RCA Mid. 10:52:33 HR=60 bpm, WKTX=702/68 mmhg, SpO2=97.0 %, Resp=18 B/min 10:53:49 Delivery device removed A STENT, 3.0 34MM ARCHIE 3.0 34MM was advanced through a JR 3.5 GUIDE CATHETER FR 6 over a WIRE, HI TORQUE 10:56:57 ALLSTAR 190CM 190CM. 10:57:34 HR=58 bpm, EEKX=725/68 mmhg, SpO2=97.0 %, Resp=13 B/min A STENT, 3.0 34MM ARCHIE 3.0 34MM was deployed using a 30 RICHARD INDEFLATOR at 16 atmospheres for 30 seconds in 10:58:10 the RCA Prox. 10:59:46 Delivery device removed A BALLOON, 2.5 X 20MM NC EUPHORA 20MM was inserted over WIRE, HI TORQUE ALLSTAR 190CM 190CM via the 11:00:49 Fem Art (right). 11:02:35 HR=59 bpm, OTNV=158/71 mmhg, SpO2=98.0 %, Resp=15 B/min 11:02:45 Balloon Removed. No inflations. A BALLOON, 2.5 X 15MM NC EUPHORA 15MM was inserted over WIRE, HI TORQUE ALLSTAR 190CM 190CM via the 11:04:04 Fem Art (right). A BALLOON, 2.5 X 15MM NC EUPHORA 15MM over a WIRE, HI TORQUE ALLSTAR 190CM 190CM in the RCA Mid was 11:05:30 inflated using a 30 RICHARD INDEFLATOR at 20 richard for 40 sec. A BALLOON, 2.5 X 15MM NC EUPHORA 15MM over a WIRE, HI TORQUE ALLSTAR 190CM 190CM in the RCA Mid was 11:06:39 inflated using a 30 RICHARD INDEFLATOR at 22 richard for 45 sec. 11:08:13 HR=63 bpm, LUUB=573/67 mmhg, SpO2=97.0 %, Resp=18 B/min 11:09:05 Balloon Removed. 11:09:28 Catheter was removed 11:09:32 Wire removed 11:10:00 Case End 11:11:09 In the Fem Art (right) the SHEATH, FR6.5 PRELUDE 11CM FR 6.[address] by Pierce Lovett. 11:11:46 Sterile dressing applied to site 11:11:46 No case complications noted. 11:11:49 Cine recording checked. 11:11:51 Bedside Report will be given. 11:11:53 Implantable Device card placed in patient's chart. 11:11:58 Contrast Scanned 11:12:06 A Left Heart Cath was performed. Assessment: Final Case, HR=61 BPM, Rhythm=sascha, YDWY=920/69 mmhg, Chest Pain=0, Edema=None, Color=Normal, Skin = Warm, Dry Right Pulses: Dileep Ped=2, Femoral=2 11:12:24 Left Pulses: Dileep Ped=2, Femoral=2 Neurological: State=Alert, Ox3, ALEGRE Respiration: Resp=13 B/min, SpO2=98 % 11:12:35 HR=58 bpm, YUYC=436/69 mmhg, SpO2=99.0 %, Resp=13 B/min 11:13:00 300 mg PLAVIX given in lab by Kaur Lomas, RN via Oral. Ordered by Pierce Lovett. 0 units/hr ANGIOMAX DRIP STOPPED given in lab by Kaur Lomas, RN in Left Antecubital. Pump /Drip Flow = 27.2 11:18:41 ml/hr using [Solution Name]. Ordered by Pierce Lovett. 11:20:00 Patient moved to [facility] End Study - Contrast Media Used In Study Contrast Total Opened (mL) Total Used (mL) Total Wasted (mL) Omnipaque 85 85 0 End Study - Maximum Contrast Load Max Contrast Load (mL) 353.1 End Study - Radiation Exposure Fluoro Time (minutes) 18.1 End Study - Patient Disposition Complications Transferred To Interventional Outcome No Telemetry Bed successful
[2017-11-06] MEDS ORDERED: SODIUM CHLORIDE 0.9% FLUSH 10 ML FLUSH IV FLUSH PRN (11:30)
[2017-11-06] MEDS ORDERED: oxyCODONE/ACETAMINOPHEN 5 MG/325 MG TAB PO PRN (11:30)
[2017-11-06] MEDS ORDERED: ATROPINE SULFATE 1 MG/ML VIAL IV PUSH PRN (11:30)
[2017-11-06] MEDS ORDERED: oxyCODONE/ACETAMINOPHEN 10 MG/325 MG TAB PO PRN (11:30)
--- NOTE | 2017-11-06 11:39 | MA ---
cc: LIZZETTE ANDERSON M.D. DATE 11/06/2017 PROCEDURE PERFORMED 1. Right coronary angiography. 2. Balloon angioplasty and stenting of the mid and proximal right coronary artery. BRIEF HISTORY Viviana Ruelas is a 62-year-old female who has had bypass surgery. All of her vein grafts have closed. The right coronary artery had severe disease. She had a nuclear stress test showing significant ischemia and for that reason I scheduled her for right coronary artery revascularization. DESCRIPTION OF PROCEDURE She was brought to the cardiac fence laborer in a fasting state. I had difficulty inserting a sheath in the right femoral artery, finding the artery with a needle. Ultrasound was eventually used and I was able to then place a 6 [place] sheath. I started with a right 4 Andrea but switched to a right 3.5, 6 Northern Irish guiding catheter to engage the right coronary artery. The right coronary artery was wired with a BMW wire. I then predilated the mid and proximal right vessel with a 30 mm long 2.0 balloon. I then tried to pass a stent but it got snagged proximally. Prior to this I used a 2.5 mm noncompliant balloon for an area of calcific stenosis in the proximal vessel. I finally went with an All-Star rajesh wire and predilated proximally with a 2.75 NC balloon and this time I was able to deliver the stent distally. This was a 2.5 x 30 mm Resolute Sherman stent positioned distally and deployed at 14 atmospheres. I then placed in overlapping fashion a 3.0 x 34 mm Resolute Sherman stent proximally. This was deployed at 16 atmospheres. The distal end of the first stent was not fully expanded so I used a 2.5 x 15 mm NC balloon and took this as high as 22 atmospheres and I was able to get that stenosis to yield. The entire vessel now looks excellent. The guiding catheter is removed. The sheath is sewn in place and will be pulled manually later. There were no complications. FINDINGS HEMODYNAMICS Aortic pressure is 117/49 with a mean of 74. CORONARY ANGIOGRAPHY The right coronary artery is a dominant vessel severely and diffusely diseased. There is a long zone of 80% mid disease and then a long 90% proximal disease. The PDA has diffuse disease. The posterolateral branches have somewhat diffuse disease. RESULTS OF STENTING Following stenting of the mid and proximal right coronary artery there is 0% residual stenosis throughout this segment with SUKHWINDER-III flow and improvement in perfusion distally. CONCLUSIONS Critical disease of the right coronary artery, now successfully stented with two overlapping drug-eluting stents with excellent angiographic results. The procedure was done with Angiomax. PLAN The patient is being loaded with an additional 300 mg of Plavix. Will watch her through today and probably let her go home tomorrow. MD HAN Bazzi/JANENE /11:16 AM /11:23 AM
[2017-11-06] MEDS ORDERED: PILL SPLITTER OTHER PRN (12:45)
[2017-11-06] MEDS ORDERED: TEMAZEPAM 15 MG CAP PO PRN (13:00)
[2017-11-06] MEDS ORDERED: SODIUM CHLOR 0.9% 250 ML INJ 250 ML IV PRN (13:00)
[2017-11-06] MEDS ORDERED: MORPHINE SULFATE 4 MG/ML INJ IV PUSH PRN (13:00)
[2017-11-06] MEDS ORDERED: ACETAMINOPHEN 325 MG TAB PO PRN (13:00)
[2017-11-06] MEDS ORDERED: ONDANSETRON HCL 4 MG/2 ML VIAL IV PUSH PRN (13:00)
[2017-11-06] MEDS ORDERED: SODIUM CHLOR 0.9% 1000 ML INJ 1,000 ML IV SCH (13:00)
[2017-11-06] MEDS: INSULIN ASPART SUPPLEMENTAL SCALE SQ SCH ×2 (16:47→21:00)
[2017-11-06] MEDS: SODIUM CHLORIDE 0.9% FLUSH 10 ML FLUSH IV FLUSH SCH (20:03)
[2017-11-06] MEDS: LISINOPRIL 5 MG TAB PO SCH (20:03)
--- NOTE | 2017-11-06 20:46 | EKG ---
Date Performed: 11/06/2017 Time Performed: 08:48:56 PTAGE: 62 years EKG: Sinus bradycardia. rSr'(V1) - probable normal variant Inferior infarct - age undetermined L ow QRS voltages in precordial leads Compared to previous tracing, the patient is now bradycardic Abno rmal ECG PREVIOUS TRACING : 09/25/2017 09.18 DOCTOR: Doreen Elaine Interpretating Date/Time 11/06/2017 20:44:05
[2017-11-07] VITALS (12 sets, daily range): BP systolic 122–124; BP diastolic 57–82; PULSE 59–75; RESP 16; TEMP 98–98.1; O2SAT 95–96
[2017-11-07 04:26] LABS: BASOPHIL # 0.1 TH/MM3 (0-0.2); BASOPHIL % 0.8 % (0.0-2.0); EOSINOPHIL # 0.2 TH/MM3 (0-0.4); EOSINOPHIL % 2.8 % (0.0-4.0); HEMATOCRIT 41.9 % (35.0-46.0); HEMOGLOBIN 14.3 GM/DL (11.6-15.3); LYMPH % 12.8 % (9.0-44.0); LYMPHOCYTE # 0.8 TH/MM3 (1.0-4.8); MEAN CELL VOLUME 86.8 FL (80.0-100.0); MEAN CORPUSCULAR HEMOGLOBIN 29.6 PG (27.0-34.0); MEAN CORPUSCULAR HGB CONC 34.1 % (32.0-36.0); MEAN PLATELET VOLUME 8.9 FL (7.0-11.0); MONO % 7.4 % (0.0-8.0); MONOCYTE # 0.5 TH/MM3 (0-0.9); NEUT % 76.2 % (16.0-70.0); PLATELET COUNT 222 TH/MM3 (150-450); RED BLOOD COUNT 4.83 MIL/MM3 (4.00-5.30); RED CELL DISTRIBUTION WIDTH 13.9 % (11.6-17.2); WHITE BLOOD COUNT 6.6 TH/MM3 (4.0-11.0)
[2017-11-07 04:46] LABS: BICARBONATE 25.2 MEQ/L (21.0-32.0); CREATININE 1.08 MG/DL (0.50-1.00)
[2017-11-07] MEDS ORDERED: ISOSORBIDE MONONITRATE 30 MG TAB PO SCH (07:00)
[2017-11-07] MEDS: INSULIN ASPART SUPPLEMENTAL SCALE SQ SCH (08:31)
[2017-11-07] MEDS ORDERED: ASPIRIN EC 81 MG TABEC PO SCH (09:00)
[2017-11-07] MEDS ORDERED: ATORVASTATIN 40 MG TAB PO SCH (09:00)
[2017-11-07] MEDS ORDERED: ASPIRIN 81 MG CHEW TAB PO SCH (09:00)
[2017-11-07] MEDS ORDERED: METOPROLOL TARTRATE 25 MG TAB PO SCH (09:00)
[2017-11-07] MEDS ORDERED: CLOPIDOGREL 75 MG TAB PO SCH ×2 (09:00)
--- NOTE | 2017-11-07 09:04 | PD.CARD.PN ---
Subjective Subjective Remarks no complaints Objective Medications Current Medications Medications (Trade) Dose Ordered Sig/Margoth Route Start Time Stop Time Status Last Admin Sodium Chloride 1,000 ml @ 30 mls/hr Q24H IV 11/06/17 09:00 (NS Flush) 2 ml UNSCH PRN IV FLUSH 11/06/17 11:30 (NS Flush) 2 ml BID IV FLUSH 11/06/17 21:00 11/06/17 20:03 (Tylenol) 325 mg Q4H PRN PO 11/06/17 13:00 (Percocet 5-325 Mg) 1 tab Q4H PRN PO 11/06/17 11:30 (Percocet 10-325 Mg) 1 tab Q4H PRN PO 11/06/17 11:30 (Morphine Inj) 2 mg Q30M PRN IV PUSH 11/06/17 13:00 (Restoril) 15 mg HS PRN PO 11/06/17 13:00 (Aspirin Chew) 81 mg DAILY PO 11/07/17 09:00 (Atropine Inj) 0.5 mg UNSCH PRN IV PUSH 11/06/17 11:30 Sodium Chloride 250 ml @ 500 mls/hr ONCE PRN IV 11/06/17 13:00 11/07/17 12:59 (Zofran Inj) 4 mg Q4H PRN IV PUSH 11/06/17 13:00 (Plavix) 75 mg DAILY PO 11/07/17 09:00 (Imdur) 30 mg DAILY@07 PO 11/07/17 07:00 11/07/17 06:07 (Lopressor) 12.5 mg DAILY PO 11/07/17 09:00 (Prinivil) 2.5 mg BID PO 11/06/17 21:00 11/06/17 20:03 (Lipitor) 40 mg DAILY PO 11/07/17 09:00 (NovoLOG SUPPLEMENTAL SCALE) 1 ACHS SLIDING SCALE SQ 11/06/17 13:00 (Pill Splitter) 1 ea UNSCH PRN OTHER 11/06/17 12:45 Vital Signs / I&O Vital Signs Date Time Temp Pulse Resp B/P (MAP) Pulse Ox O2 Delivery O2 Flow Rate FiO2 11/07/17 07:31 98.0 75 16 122/82 (95) 95 11/07/17 06:00 59 11/07/17 05:00 66 11/07/17 04:00 64 11/07/17 03:40 98.1 65 16 124/57 (79) 96 11/07/17 03:00 70 11/07/17 02:00 62 11/07/17 01:00 64 11/07/17 00:00 65 11/06/17 23:00 98.1 65 16 149/63 (91) 95 11/06/17 23:00 59 11/06/17 22:00 56 11/06/17 21:00 76 11/06/17 20:00 69 11/06/17 19:30 98.2 55 16 131/76 (94) 98 11/06/17 19:00 55 11/06/17 18:00 52 11/06/17 17:00 62 11/06/17 16:00 57 11/06/17 15:42 55 11/06/17 15:42 97.6 61 18 120/55 (76) 99 11/06/17 14:52 97.6 60 18 115/55 (75) 98 11/06/17 11:30 100 Room Air I/O 11/06/17 11/06/17 11/06/17 11/07/17 11/07/17 11/07/17 07:00 15:00 23:00 07:00 15:00 23:00 Intake Total 480 ml 440 ml Output Total 1300 ml Balance 480 ml -860 ml Intake Oral 480 ml 440 ml Output Urine Total 1300 ml # Voids 2 1 # Bowel Movements 0 0 Physical Exam GENERAL: Well developed, well nourished. No acute distress. HEENT: Jugular venous pressure is normal. CHEST: Lungs clear to auscultation bilaterally. Unlabored respiratory effort. CARDIAC: Regular rate and rhythm without S3, S4, or murmur. ABDOMEN: Soft, nontender, no hepatosplenomegaly. Bowel sounds present. EXTREMITIES: No clubbing, cyanosis, or edema. Right groin OK. Laboratory Laboratory Tests Test 11/07/17 03:30 White Blood Count 6.6 TH/MM3 Red Blood Count 4.83 MIL/MM3 Hemoglobin 14.3 GM/DL Hematocrit 41.9 % Mean Corpuscular Volume 86.8 FL Mean Corpuscular Hemoglobin 29.6 PG Mean Corpuscular Hemoglobin Concent 34.1 % Red Cell Distribution Width 13.9 % Platelet Count 222 TH/MM3 Mean Platelet Volume 8.9 FL Neutrophils (%) (Auto) 76.2 % Lymphocytes (%) (Auto) 12.8 % Monocytes (%) (Auto) 7.4 % Eosinophils (%) (Auto) 2.8 % Basophils (%) (Auto) 0.8 % Neutrophils # (Auto) 5.0 TH/MM3 Lymphocytes # (Auto) 0.8 TH/MM3 Monocytes # (Auto) 0.5 TH/MM3 Eosinophils # (Auto) 0.2 TH/MM3 Basophils # (Auto) 0.1 TH/MM3 CBC Comment DIFF FINAL Differential Comment Blood Urea Nitrogen 22 MG/DL Creatinine 1.08 MG/DL Random Glucose 59 MG/DL Calcium Level 9.0 MG/DL Sodium Level 141 MEQ/L Potassium Level 3.9 MEQ/L Chloride Level 108 MEQ/L Carbon Dioxide Level 25.2 MEQ/L Anion Gap 8 MEQ/L Estimat Glomerular Filtration Rate 52 ML/MIN Total Creatine Kinase 65 U/L Assessment and Plan Problem List: (1) CAD (coronary artery disease) ICD Codes: I25.10 - Atherosclerotic heart disease of [place] coronary artery without angina pectoris Plan: stable (2) Hypertension ICD Codes: I10 - Hypertension Status: Acute (3) Stented coronary artery ICD Codes: Z95.5 - Presence of coronary angioplasty implant and graft Plan: cont ASA, clopidogrel Assessment and Plan DC home. OV few weeks. Meds stay the same Pierce Lovett MD Nov 07, 2017 09:04
[2017-11-07] MEDS: LISINOPRIL 5 MG TAB PO SCH (09:07)
[2017-11-07] MEDS: SODIUM CHLORIDE 0.9% FLUSH 10 ML FLUSH IV FLUSH SCH (09:08)
--- NOTE | 2017-11-07 17:25 | EKG ---
Date Performed: 11/07/2017 Time Performed: 05:57:52 PTAGE: 62 years EKG: Sinus bradycardia Inferior infarct - age undetermined QRS changes V3/V4 may be due to LVH b ut cannot rule out anterior infarct Low QRS voltages in precordial leads Abnormal ECG PREVIOUS TRACING : 11/06/2017 11.35 DOCTOR: Magy Stoddard Interpretating Date/Time 11/07/2017 17:21:13
--- NOTE | 2017-11-07 17:52 | EKG ---
Date Performed: 11/06/2017 Time Performed: 11:35:30 PTAGE: 62 years EKG: Sinus bradycardia. Possible inferior infarct - age undetermined Septal T wave changes are n onspecific Low QRS voltages in precordial leads Abnormal ECG PREVIOUS TRACING : 11/06/2017 08.48 DOCTOR: Magy Stoddard Interpretating Date/Time 11/07/2017 17:40:58
== END 2017-11-07 09:55 | disposition home or self-care (01) ==
LOC: HDOC 07:57 → HDIC 08:02 → HCPC 15:41 → HDOC 16:14 → HCIS 16:15 → UNDOADMIN 16:15 → HCIS 16:15 → HCPC 16:20 → HDOC 11-07 09:55
PROVIDERS: ATTEND Internal Medicine Cardiovascular Disease
DX: I25.10 Atherosclerotic heart disease of native coronary artery without angina pectoris (principal); I10 Essential (primary) hypertension; E78.5 Hyperlipidemia, unspecified; I25.2 Old myocardial infarction; E11.9 Type 2 diabetes mellitus without complications; E66.9 Obesity, unspecified; Z95.5 Presence of coronary angioplasty implant and graft; Z68.32 Body mass index [BMI] 32.0-32.9, adult; Z79.4 Long term (current) use of insulin; Z79.02 Long term (current) use of antithrombotics/antiplatelets; Z79.82 Long term (current) use of aspirin
CPT/HCPCS: 80048; 82550; 82948; 85025; 85610; 85730; 92928; 93005; 93454; 99152; 99153; C1725; C1769; C1874; C1887; C1893; J0583; J1644; J2250; J3010; Q9967